=== PATIENT | male | born 1960 | race Caucasian/White ===

== ENCOUNTER 2018-03-26 15:16 | Inpatient (IN) | payer MEDICARE, MEDICAID ==
[~2018-03-26] VITALS: Ht 177.8 cm; Wt 86.2 kg
[~2018-03-26 15:16] MED LIST: ADVAIR 500-501 EACH; ALBUTEROL INHAL17 GM IH; ALBUTEROL NEB; ALBUTEROL2.5 MG/0.5 INH; CLARITIN10 M2 PO; COMBIVENT INH; DILANTIN100 MG PO; FUROSEMIDE; HUMALOG100 UNIT/1 SUBQ; KEFLEX500 MG PO; KEPPRA1000 MG PO; LANTUS SQ; LASIX 20 MG TAB20 MG PO; LISINOPRIL20 MG PO; MEDROLDOSEPACK PO; NEOSPORIN ANT14.2 GM TOP; NORCO 5-325 TA1 EAC1 PO; PAXIL10 MG; PENICILLIN VK250 MG PO; PREDNISONE 20 M20 MG PO; PRINIVIL20 MG PO; VENTOLIN HFA 1818 GM INH; ZOHYDRO ER10 M1 PO; ZPAK PO
[2018-03-26 15:28] VITALS: BP 137/103
--- NOTE | 2018-03-26 16:04 | NUR ---
XRAY IN ROOM
[2018-03-26 16:46] LABS: ABSOLUTE BASOPHILS 0.1 thou/uL (0.0-0.2); ABSOLUTE EOSINOPHILS 0.1 thou/uL (0.0-0.7); ABSOLUTE LYMPHOCYTES 1.6 thou/uL (0.8-5.3); ABSOLUTE MONOCYTES 0.6 thou/uL (0.0-1.2); ABSOLUTE NEUTROPHILS 12.2 thou/uL (1.6-8.1); BASOPHILS 0.8 %; EOSINOPHILS 0.4 %; HEMATOCRIT 40.9 % (42.0-52.0); HEMOGLOBIN 13.7 gm/dL (14.0-18.0); LYMPHOCYTES 11.2 %; MCH 30.3 pg (26.0-34.0); MCHC 33.4 g/dL (28.0-37.0); MCV 90.7 fL (80.0-100.0); MONOCYTES 4.4 %; MPV 7.5 fl. (7.2-11.1); NUCLEATED RBCS 0 /100WBC; PLATELET COUNT* 279 thou/uL (150-400); POLYS 83.2 %; RBC 4.51 mil/uL (4.50-6.00); RDW-CV 13.8 % (10.5-14.5); WBC 14.7 thou/uL (4.0-11.0)
[2018-03-26 16:54] LABS: CALCIUM 8.3 mg/dL (8.5-10.1); CREATININE 0.9 mg/dL (0.6-1.3); POTASSIUM 4.6 mmol/L (3.5-5.1)
[2018-03-26 16:59] LABS: ALBUMIN 1.4 g/dL (3.4-5.0); TOTAL BILIRUBIN 0.6 mg/dL (<0.1-1.0); TOTAL PROTEIN 7.8 g/dL (6.4-8.2)
[2018-03-26 19:00] VITALS: BP 177/107
[2018-03-26 22:10] VITALS: BP 176/100
--- NOTE | 2018-03-26 22:42 | NUR ---
ARRIVED FROM ER ALERT AND ORIENTED X4. ORIENTED TO ROOM AND BED CONTROLS. PO PAIN MEDICATION GIVEN. DRESSING APPLIED TO OPEN WOUNDS ON LEFT LEG AND RIGHT FOOT. NO C/O N/V. BED ALARM ON. CALL LIGHT WITHIN REACH. ASSESSMENT CHARTED. IV ANTIBIODIC INFUSING AT THIS TIME.
[2018-03-27 00:17] VITALS: BP 159/96
[2018-03-27 04:14] LABS: HEMATOCRIT 41.6 % (42.0-52.0); HEMOGLOBIN 13.7 gm/dL (14.0-18.0); MCH 29.9 pg (26.0-34.0); MCHC 32.8 g/dL (28.0-37.0); MCV 91.2 fL (80.0-100.0); MPV 7.4 fl. (7.2-11.1); RBC 4.57 mil/uL (4.50-6.00); RDW-CV 13.7 % (10.5-14.5); WBC 13.4 thou/uL (4.0-11.0)
--- NOTE | 2018-03-27 04:33 | NUR ---
ALERT AND ORIENTED X4. UP WITH STAND BY ASSIST TO BATHROOM. PO PAIN MEDICATION GIVEN AND HELPFUL. NO C/O N/V. CONTINUES ON IV ANTIBIODICS. IVF INFUSING WITHOUT DIFFICULTY. NEW DRESSINGS TO RIGHT AND LEFT LOWER EXTREMITY REMAIN DRY AND INTACT. BED ALARM ON. CALL LIGHT WITHIN REACH.
[2018-03-27 05:24] LABS: ALBUMIN 1.4 g/dL (3.4-5.0); CREATININE 0.8 mg/dL (0.6-1.3); MAGNESIUM 1.6 mg/dL (1.8-2.4); POTASSIUM 3.9 mmol/L (3.5-5.1); TOTAL BILIRUBIN 0.4 mg/dL (<0.1-1.0); TOTAL PROTEIN 7.7 g/dL (6.4-8.2)
[2018-03-27 05:30] VITALS: BP 136/80
[2018-03-27 08:40] VITALS: BP 151/92
[2018-03-27] MEDS ORDERED: LASIX 20 MG TAB20 MG PO (14:00)
[2018-03-27] MEDS ORDERED: KEPPRA1000 MG PO (14:00)
[2018-03-27] MEDS ORDERED: LYRICA 50 MG50 MG PO (14:01)
[2018-03-27] MEDS ORDERED: NOVOLOG100 UNIT/1 SUBQ (14:02)
--- NOTE | 2018-03-27 14:12 | NUR ---
SPOKE WITH PT.IN ROOM. HE SEEMED QUIET,SOMEWHAT DISTRAUGHT. HE SAID THE DRRajTHAT WILL BE LOOKING AT HIS FOOT,HAS NOT CAME IN YET. HE SAID THE OTHER DRRajTALKED LIKE THEY MIGHT HAVE TO CUT OFF HIS FOOT. EDUCATED PT.ON OSTEOMYLEITIS. THEY WOULD NOT HAVE TO TAKE OFF HIS WHOLE FOOT ON FIRST SURGERY. POSSIBLY JUST HIS TOE OR PART OF HIS FOOT. THE DRRajWILL BE IN TODAY AND EXPLAIN IT TO HIM. 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 HE HAS TO BE ON THE JOB BUT COULD PROBABLY SIT IN THE AIR CONDITIONED OFFICE THAT IS AT THE JOB SITE. HE LIVES WITH HIS S.O.,FEI. 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 HE SAID THEY WILL BE MOVING IN ABOUT A WEEK. AT THIS TIME THEY ARE LIVING WITH HIS BROTHER AND BOTH (HE AND BROTHER) HAVE GOTTEN THEIR OWN PLACES TO LIVE. HE SAID HE HAS TO BE THERE WHEN THEY MOVE BECAUSE HIS BROTHER HAS A BRAIN INJURY FROM FALLING OFF THE BACK OF A TRUCK. HE WILL TAKE THINGS THAT ARENT HIS. PER CHARGE NURSE,SENDY, PT.IS NOT IN POLICE CUSTODY ANY LONGER. CM WILL FOLLOW.
[2018-03-27 16:00] VITALS: BP 175/100
--- NOTE | 2018-03-27 16:07 | NUR ---
PATIENT EXTREMELY UPSET AND FRUSTRATED. PATIENT STATING HE NEEDS TO LEAVE DUE TO SITUATIONS THAT ARE GOING ON AT HOME. EXPLAINED TO PATIENT THAT THE DONOR SERVICES COORDINATOR IS PLANNING ON COMING BY AFTER CLINIC HOURS AND ENCOURAGED PATIENT TO STAY FOR ANTIBIOTICS AND WOUND CARE. PATIENT STATED HE WOULD TRY TO STAY UNTIL THE DONOR SERVICES COORDINATOR CAME BY. PAGED DR REDD TO UPDATE ON PATIENT STATUS.
[2018-03-27 17:32] LABS: AMP/METHAMP POSITIVE (Negative); BARBITURATES Negative (Negative); BENZODIAZEPINES Negative (Negative); COCAINE Negative (Negative); METHADONE Negative (Negative); OPIATES POSITIVE (Negative); PCP Negative (Negative); THC Negative (Negative)
--- NOTE | 2018-03-27 18:37 | NUR ---
PATIENT HAS BEEN A/O X 4 THIS SHIFT. HAS BEEN ANXIOUS AND UPSET AT TIMES, REASSURANCE PROVIDED. CONTINUES ON IV ANTIBIOTICS. DRESSING CHANGED TO RIGHT FOOT BY DR HIGH. PATIENT TO HAVE MRI ON TUESDAY. PATIENT'S BLOOD SUGARS MONITORED AND SS GIVEN ORDERED. PATIENT URINE SENT FOR DRUG SCREEN ORDERED. PATIENT TO BE NPO AFTER MIDNIGHT FOR SURGERY ON TUESDAY. HOURLY ROUNDING COMPLETED. CALL LIGHT WITHIN REACH. WILL CONTINUE WITH PLAN OF CARE.
[2018-03-28 08:00] VITALS: BP 153/82
--- NOTE | 2018-03-28 08:17 | CON ---
[address] [address] CONSULTATION Name: CHUYITA LUA Room: [address] IN M.R.#: [id number] Admission: 03/26/18 Attend Phys: Juli Johnson MD Discharge: Date of : 62 Report #: [id number] THIS REPORT FOR: //name// CC: [facility] physician/PCP Juli Johnson DATE OF SERVICE: 03/27/2018 INFECTIOUS DISEASE CONSULTATION ATTENDING PHYSICIAN: Dr. Johnson. REASON FOR EVALUATION: Right first MTP site probable osteomyelitis as well as septic arthritis. HISTORY OF PRESENT ILLNESS: Chart reviewed, patient examined. This is a 57-year-old gentleman with diabetes mellitus that has been uncontrolled. This was complicated by severe peripheral neuropathy. He stated he believes he stepped on a nail roughly a month ago, it was least 24-36 hours before he was aware of it, had some low-grade temperatures elevations at that time. He noted the nail to perhaps be 1/2 inch long. Since it did hurt him in part probably due to peripheral neuropathy, he did not seek attention. He has had some falls by virtue of the fact he has got a bruised area on his knee, on his max on the left and a larger area of ulceration on the right foot as well. He denies significant anorexia. He has had some mild dyspnea. No gastrointestinal-related complaints. Initial evaluation included CT of the foot, which shows changes consistent with osteomyelitis and septic arthritis of the first metatarsophalangeal joint with erosions and chondrolysis. Lactic acid was 1.8. Prealbumin was 14.7. Initial glucose was 322. Blood cultures were sterile thus far. He was empirically started on piperacillin and tazobactam as well as vancomycin. ALLERGIES: None known. MEDICATIONS: Include ondansetron, vancomycin, Zosyn, enoxaparin, insulin, pantoprazole, lisinopril. PAST MEDICAL HISTORY: Diabetes mellitus type 2 complicated by severe peripheral neuropathy, history of cardiomyopathy with congestive heart failure, seizures, hypertension, COPD, previous cholecystectomy. SOCIAL HISTORY: History of illicit drug use. Smokes cigarettes on a daily basis. Occasional ethanol. FAMILY HISTORY: [place] [address] CONSULTATION Name: CHUYITA LUA [place] Room: [address]#: [id number] Admission: 03/26/18 Attend Phys: Juli Johnson MD Discharge: Date of : 62 Report #: [id number] REVIEW OF SYSTEMS: As above. PHYSICAL EXAMINATION: GENERAL: He appears somewhat chronically ill, undernourished. He is pleasant and cooperative. He is not encephalopathic, he is in cmhu-qx-brlgigyv distress. VITAL SIGNS: Temperature 98.6, pulse 80, respirations 20, blood pressure 151/92. SKIN: Warm, dry. HEENT: Unremarkable. NECK: Supple. LUNGS: Diminished breath sounds. HEART: Regular. I think he has got a soft systolic murmur. ABDOMEN: Soft, nontender, nondistended. EXTREMITIES: He has got a dressing over his right foot and left leg. I did review the multiple photographs. LABORATORY AND X-RAY DATA: Blood cultures sterile thus far. Glucose this morning was 132. Electrolytes: Sodium 135, potassium 3.9, chloride 100, bicarbonate is 27, anion gap of 8, BUN and creatinine 14 and 0.8. LFTs: AST of 45, borderline upper limits of normal; ALT of 26; alkaline phosphatase of 288; albumin 1.4; total protein 7.7. Estimated GFR of 100. Prealbumin 14.7. CBC: White count of 13.4, H and H 13.7 and 41.6, platelets of 263. CT as noted above. Lactic acid of 1.8. Plain film of the foot, first MTP joint, moderate osteoarthrosis. ASSESSMENT: Probable deep infection involving the first MTP, likely chronic osteomyelitis and septic arthritis. We did plan for certified scrub tech to evaluate. We will continue empiric therapy as prescribed. I suspect we will need some sort of surgical intervention at this point. He was quite distraught about that possibility. He certainly did not have well-controlled diabetes to this point. We will await culture results. In the event of chronic osteomyelitis, we need to consider therapeutic options in this setting. <ELECTRONICALLY SIGNED> By: Wes Lozano MD 03/28/18 0817 0932 [id number] Lozano MD /nt
--- NOTE | 2018-03-28 08:43 | NUR ---
PATIENT HAS BEEN AGITATED AND IRRITABLE DURING THE SHIFT. USES PROFANITY TOWARDS STAFF AT TIMES WHEN ANGRY. VSS ON RA, ALTHOUGH BP ELEVATED. DRESSING TO RIGHT FOOT IS C/D/I. IV IN LEFT FOREARM-SL. IV ABT'S GIVEN WITHOUT ANY ADVERSE SIDE EFFECTS NOTED. SEIZURE PRECAUTIONS STILL IN PLACE AT THIS TIME. PATIENT HAS REMAINED NPO SINCE MIDNIGHT. PATIENT INSTRUCTED TO USE CALL LIGHT WHEN NEEDING ASSISTANCE. HOURLY ROUNDS MADE. WILL CONTINUE WITH PLAN OF CARE AND NURSING TO MONITOR.
[2018-03-28 08:54] LABS: ABSOLUTE BASOPHILS 0.1 thou/uL (0.0-0.2); ABSOLUTE EOSINOPHILS 0.1 thou/uL (0.0-0.7); ABSOLUTE LYMPHOCYTES 1.8 thou/uL (0.8-5.3); ABSOLUTE MONOCYTES 0.8 thou/uL (0.0-1.2); ABSOLUTE NEUTROPHILS 6.7 thou/uL (1.6-8.1); EOSINOPHILS 1.2 %; HEMATOCRIT 37.1 % (42.0-52.0); HEMOGLOBIN 12.4 gm/dL (14.0-18.0); LYMPHOCYTES 18.6 %; MCH 30.2 pg (26.0-34.0); MCHC 33.4 g/dL (28.0-37.0); MCV 90.6 fL (80.0-100.0); MONOCYTES 8.4 %; MPV 7.6 fl. (7.2-11.1); NUCLEATED RBCS 0 /100WBC; PLATELET COUNT* 224 thou/uL (150-400); POLYS 70.8 %; RDW-CV 13.4 % (10.5-14.5); WBC 9.5 thou/uL (4.0-11.0)
[2018-03-28 09:01] LABS: CALCIUM 7.9 mg/dL (8.5-10.1); CREATININE 0.9 mg/dL (0.6-1.3); POTASSIUM 4.1 mmol/L (3.5-5.1)
[2018-03-28 15:06] VITALS: BP 153/82
--- NOTE | 2018-03-28 16:41 | NUR ---
0730-ASSUMED CARE OF PT, PT RESTING AT THIS TIME WITH NO C/O PAIN. 0900-PT STATES HE IS HUNGRY AND DOES NOT WANT TO CONTINUE TO WAIT FOR MRI, PT TOLD THAT THIS RN WOULD INQUIRE REGARDING TIMES FOR PROCEDURES & PT UPDATED THAT HIS SISTER AND RAMÓN CALLED TO INQUIRE ABOUT HIS STATUS. 1030-PT ASLEEP AT THIS TIME, WILL UPDATE REGARDING THE PLAN OF CARE WHEN PT WAKES 1245-PT LEFT FOR MRI 0345-PT LEFT FOR SURGERY AT THIS TIME. WILL WAIT FOR PT TO RETURN
[2018-03-28 16:57] VITALS: BP 179/87
[2018-03-28 18:19] VITALS: BP 153/83
--- NOTE | 2018-03-28 18:33 | NUR ---
1818-PT RETURNED FROM PACU. PT VSS AT THIS TIME. PT IS LETHARGIC BUT ALERT WHEN SPOKEN TO. PT REQUESTING FOOD AT THIS TIME, WILL PROVIDE WITH BOX LUNCH. PT RESTING IN BED AT THIS TIME. RT FOOT DRESSING IS CDI AT THIS TIME AND ORDERS ARE TO REINFORCE IF NECESSARY. PT HAS NO C/O PAIN AT THIS TIME.
[2018-03-28 22:00] VITALS: BP 176/100
[2018-03-29 03:40] VITALS: BP 163/101
[2018-03-29 06:10] LABS: GLYCOHEMOGLOBIN (HGB A1C) 12.1 % (4.8-5.6)
[2018-03-29 08:30] VITALS: BP 165/94
[2018-03-29 08:37] LABS: ABSOLUTE BASOPHILS 0.1 thou/uL (0.0-0.2); ABSOLUTE EOSINOPHILS 0.1 thou/uL (0.0-0.7); ABSOLUTE LYMPHOCYTES 1.7 thou/uL (0.8-5.3); ABSOLUTE MONOCYTES 0.7 thou/uL (0.0-1.2); ABSOLUTE NEUTROPHILS 6.5 thou/uL (1.6-8.1); BASOPHILS 0.7 %; HEMATOCRIT 37.9 % (42.0-52.0); HEMOGLOBIN 12.6 gm/dL (14.0-18.0); LYMPHOCYTES 18.8 %; MCH 29.8 pg (26.0-34.0); MCHC 33.1 g/dL (28.0-37.0); MONOCYTES 7.4 %; MPV 7.4 fl. (7.2-11.1); NUCLEATED RBCS 0 /100WBC; PLATELET COUNT* 263 thou/uL (150-400); POLYS 72.1 %; RBC 4.21 mil/uL (4.50-6.00)
[2018-03-29 09:03] LABS: ALBUMIN 1.3 g/dL (3.4-5.0); CREATININE 0.8 mg/dL (0.6-1.3); POTASSIUM 4.1 mmol/L (3.5-5.1); TOTAL BILIRUBIN 0.4 mg/dL (<0.1-1.0)
--- NOTE | 2018-03-29 09:51 | NUR ---
PATIENT HAS SLEPT WELL THROUGHOUT THE NIGHT WITHOUT ANY ISSUES. NO C/O PAIN. VSS ON RA, ALTHOUGH BP ELEVATED. DRESSING TO RIGHT FOOT IS C/D/I. IV IN LEFT FOREARM-SL. IV ABT'S GIVEN WITHOUT ANY ADVERSE SIDE EFFECTS NOTED. PATIENT INSTRUCTED TO USE CALL LIGHT WHEN NEEDING ASSISTANCE. HOURLY ROUNDS MADE. WILL CONTINUE WITH PLAN OF CARE AND NURSING TO MONITOR.
--- NOTE | 2018-03-29 13:36 | OP ---
[address] [address] OPERATIVE REPORT Name: CHUYITA LUA Room: [address] IN .R.#: [id number] Admission: 03/26/18 Attend Phys: Juli Johnson MD Discharge: Date of : 62 Report #: [id number] THIS REPORT FOR: //name// CC: [facility] physician/PCP Juli Johnson DATE OF SERVICE: 03/28/2018 SURGEON: Jose D Currie DPM. PREOPERATIVE DIAGNOSIS: Deep tissue infection, right foot. POSTOPERATIVE DIAGNOSIS: Deep tissue infection, right foot. PROCEDURE: 1. Incision and drainage, right foot. 2. Excision soft tissue lesion, right foot. HEMOSTASIS: Right ankle pneumatic tourniquet at 250 mmHg. ESTIMATED BLOOD LOSS: Minimal. CULTURES: Soft tissue, right foot, aerobic and anaerobic. SUTURES: 2-0 nylon. COMPLICATIONS: None. DESCRIPTION OF PROCEDURE: The patient was brought to the OR and placed on the table supine with induction of general LMA anesthesia. A well-padded right ankle pneumatic tourniquet was placed. A local anesthetic block was given to the right foot proximal to the surgical site. The extremity was prepped and draped aseptically, exsanguinated with inflation of the tourniquet. A #10 blade was used to create a circumferential incision around the wound at the medial aspect of the right first MTP joint. The soft tissue ulceration was sent for aerobic and anaerobic soft tissue cultures. Underlying the soft tissue, was intact joint capsule that had a normal appearance with no visible bone or joint. This wound did communicate to the plantar aspect of the second MTP joint where there was a previous puncture wound from a nail per the patient's history. I probed this area and a small amount of purulence was visualized. I then created an incision to the plantar aspect of the right second MTP through the existing puncture site and carried the incision proximally along the distal second metatarsal. A small amount of purulence was expressed and electrocautery was utilized for hemostasis to both surgical sites. Both wounds were thoroughly probed with a curved Margo hemostat along the medial plantar fascial band and deep tissue as well as the second and first intermetatarsal [place] [address] OPERATIVE REPORT Name: CHANELLCHUYITA Lourdes Room: [address] IN [facility]#: [id number] Admission: 03/26/18 Attend Phys: Juli Johnson MD Discharge: Date of : 62 Report #: [id number] purulence was noted. No signs of deep abscess could be determined. I was unable to express any drainage or purulence after extensive probing of the wounds. The wounds were flushed with sterile saline and bacitracin irrigant and dried. Aquacel Ag was then packed into both the medial first MTP wound and the plantar second MTP wound, which communicated. Aquacel Ag was then placed over the wounds and I used 2-0 nylon for partial approximation of some of the surgical incisions. A sterile compressive bandage with fluffs, ABDs, Kerlix, and Hua bandage were applied. The tourniquet was deflated with normal vascular return. <ELECTRONICALLY SIGNED> By: Jose D Currie DPM 03/29/18 1336 1748 1839Jose D Currie DPM /nt
--- NOTE | 2018-03-29 13:36 | CON ---
[address] [address] CONSULTATION Name: CHUYITA LUA Room: [address] IN .R.#: [id number] Admission: 03/26/18 Attend Phys: Juli Johnson MD Discharge: Date of : 62 Report #: [id number] THIS REPORT FOR: //name// CC: [facility] physician/PCP Juli Johnson DATE OF SERVICE: 03/27/2018 CHIEF COMPLAINT: The patient admission for right diabetic foot ulceration with deep tissue infection. HISTORY OF PRESENT ILLNESS: He has type 2 diabetes mellitus with poor glycemic control and a history of drug use. He had some low-grade fevers at home and presented to the Emergency Department yesterday and then admitted. He is on parenteral vancomycin and Zosyn with good tolerance. He has been afebrile during the hospitalization. He has been hypertensive. X-rays were negative for bone destruction or gas in the soft tissues, and there was no evidence of osteomyelitis. Blood cultures negative x 2. He relates stepping on a nail several weeks ago to the right plantar forefoot; he says he retrieved it. There was no evidence of a foreign body on the foot radiographs. He thinks he rubbed a blister in his shoe to the medial aspect of the right great toe joint. 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 LABORATORY DATA: WBC 13.4, RBC 4.57, hemoglobin 13.7, hematocrit 41.6 and platelets 263,000. BUN 14, creatinine 0.8 and glucose 117. Albumin 1.4. PHYSICAL EXAMINATION: There is a necrotic ulceration on the right medial great toe joint that measures roughly 2.5 x 2.5 x 0.6 cm. It is a full-thickness wound down to the level of the joint capsule with no visible bone. The wound has yellow-brown necrotic tissue with scant serous-type drainage. I am unable to express purulence, and I cannot probe to the joint. There is another wound to the plantar aspect of the right second MTP, where the patient says he stepped on the nail. The wound is roughly 0.5 x 0.5 x 0.2 cm. I am unable to express any drainage or probe to deeper structures. There is localized inflammation and edema to both areas, consistent with moderate cellulitis. He has a strong dorsalis pedis and posterior tibial pulse bilaterally. There is no pallor, cyanosis or signs of acute vascular embarrassment. He has +2 non-pitting edema to both legs with hemosiderosis to the shins. Toenails are slightly dystrophic with semi-flexible hammertoes. IMPRESSION: Diabetic foot ulceration with deep tissue infection, right medial first metatarsophalangeal and right plantar second metatarsophalangeal. Cannot rule out septic arthritis or osteomyelitis. PLAN: I took an aerobic, anaerobic swab culture of the medial first MTP wound. The wounds were cleansed and dressed with 4 x 4s and Kerlix gauze[place] [address] CONSULTATION Name: CHUYITA LUA Room: [address] IN [facility]#: [id number] Admission: 03/26/18 Attend Phys: Juli Johnson MD Discharge: Date of : 62 Report #: [id number] MRI with contrast tonight. The patient requires surgical debridement, could require partial first ray resection if there is osteomyelitis. I will review MRI results tomorrow and discuss with the patient. I will keep him n.p.o. past midnight. <ELECTRONICALLY SIGNED> By: Jose D Currie DPM 03/29/18 1336 1721 0057Jose D Currie DPM /mitchell
--- NOTE | 2018-03-29 13:36 | EKG ---
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
[2018-03-29 16:00] VITALS: BP 192/111
--- NOTE | 2018-03-29 16:53 | NUR ---
ASSUMED CARE OF PT AROUND 0730 THIS AM. REFER TO ASSESSMENT. PT DROWSY THIS SHIFT. EASILY AROUSABLE. NO C/O PAIN. FREQUENTLY AGITATED WITH NURSING CARES. PT HAS HIGH BLOOD PRESSURE THIS EVENING. NO PRN MEDS TO GIVE AT THIS TIME D/T PRN HYDRALAZINE ON BACKORDER. CALL OUT TO PHYSICIAN. MAC OPERATOR AT BEDSIDE THIS SHIFT FOR WOUND CARE. NO OTHER CONCERNS AT THIS TIME. CLWR. WCTM.
[2018-03-29 19:35] VITALS: BP 181/108
--- NOTE | 2018-03-29 22:36 | NUR ---
PATIENT BLOOD PRESSURE ELEVATED. PHYSICIAN CONTACTED. ORDERS RECIEVED.
[2018-03-30 00:58] VITALS: BP 160/99
[2018-03-30 04:34] VITALS: BP 165/99
--- NOTE | 2018-03-30 04:51 | NUR ---
PATIENT REMAINS ALERT AND ORIENTED X4 THROUGHOUT SHIFT. BLOOD PRESSURE WAS ELEVATED, PHYSICIAN WAS CONTACTED AND ORDERS WERE RECIEVED. ALSO SPOKE WITH PHYSICIAN ABOUT PATIENT BEING VERY DROWSY. NURSING IS TO CONTINUE MONITORING AT THIS TIME. VITAL SIGNS ARE CURRENTLY STABLE ON ROOM AIR. IV PATENT IN THE LEFT FOREARM SALINE LOCKED. ANTIBIOTICS INFUSED PER ORDERS. DENIES PAIN OR NAUSEA. DRESSING TO RIGHT FOOT IS CLEAN, DRY AND INTACT. REPOSITIONING SELF IN BED. CONTINUING TO MONITOR BLOOD PRESSURE CLOSELY. RESTING COMFORTABLY THROUGHOUT THE NIGHT. HOURLY ROUNDING COMPLETE. CALL LIGHT WITHIN REACH. FALL PRECAUTIONS IN PLACE. NURSING WILL CONTINUE TO MONITOR.
[2018-03-30 08:00] VITALS: BP 157/107
--- NOTE | 2018-03-30 14:00 | NUR ---
SPOKE WITH PT.EARLIER. HE SAID WHEN DISCHARGED HE WILL NOT HAVE A PLACE TO LIVE. HIS BROTHER MOVED OUT OF [place] THEY WERE LIVING IN. HIS BROTHER HAS PT.S' BELONGINGS AND WILL STORE THESE THINGS FOR HIM. HE CANNOT LIVE WITH HIM.CANNOT LIVE WITH GIRLFRIEND . SHE IS STAYING AT A BED AND BREAKFAST AND HAS A LEASE THAT DOES NOT ALLOW ANYONE TO STAY WITH HER. CANNOT STAY WITH SISTER,JOAN, SHE DOES NOT LIKE PEOPLE LIVING WITH HER. HE SAID HE WILL NOT GO DOWNTOWN TO A HOMELESS PRISON. HE DOES NOT HAVE A CAR. HIS GIRLFRIENDS CAR WAS STOLEN 2 DAYS AGO. ASKED IF HE COULD STAY AT OFFICE WHERE HIS JOB IS. HE SAID IT IS A LITTLE ONE ROOM AIR CONDITIONED PLACE. HAS A BATHROOM BUT NO RUNNING WATER. HE GETS SS EA.MONTH ON THE ,BUT HIS ACCOUNT IS OVERDRAWN AT THIS TIME. IS DUE TO GET A REFUND BACK FROM [employer] THAT HE OVERPAID-$450. SUGGESTED SNF FOR WOUND CARE,DIABETIC MANAGEMENT AND THERAPIES. HE SAID HE WOULD ONLY GO THERE IF HE COULD LEAVE TO GO TO WORK. TOLD HIM MEDICARE WOULD NOT ALLOW HIM TO LEAVE SNF WHILE HE WAS THERE WHILE THEY WERE PAYING FOR HIS STAY. BROUGHT HIM HOUSING AUTHORITY NUMBERS FOR [place] AND [place]. ALSO BROUGHT A SNF LIST IN CASE HE CHANGED HIS MIND ABOUT THAT.MADE HIM AN APPT.AT THE WOUND CARE CLINIC TO FOLLOW UP WITH . WOULD NOT BE ABLE TO SET HOME HEALTH UP IF WE DID NOT KNOW HIS DISPOSITION AT DISCHARGE. CM WILL FOLLOW.
[2018-03-30 15:09] VITALS: BP 149/91
[2018-03-30 15:53] VITALS: BP 149/91
[2018-03-30 16:13] LABS: GLOBULIN TOTAL 5.6 g/dL (2.2-3.9); M-SPIKE Not Observed g/dL (Not Observed)
[2018-03-30 19:45] VITALS: BP 190/103
--- NOTE | 2018-03-31 05:47 | NUR ---
PATIENT HAS REMAINED ALERT AND ORIENTED X 4 THROUGHOUT THE SHIFT AND RESTING QUIETLY ON HOURLY ROUNDS. DRESSING TO RIGHT FOOT CHANGED AT HS AFTER SPEAKING TO DR. HIGH. BP ELEVATED AT HS. PRN MEDICATION PROVIDED. OTHER VITAL SIGNS STABLE. PATIENT HAS DENIED NEED FOR PAIN MEDICATION. PATIENT COOPERATIVE WITH CARES. CONTINUE TO MONITOR.
[2018-03-31 06:10] VITALS: BP 165/93
[2018-03-31 07:30] VITALS: BP 178/103
[2018-03-31 09:00] VITALS: BP 178/103
--- NOTE | 2018-03-31 12:04 | NUR ---
PT. HAS DECIDED HE WOULD LIKE TO GO TO SNF. HE WOULD LIKE TO GO TO THE [facility]. WAITING FOR PHYSICAL THERAPY ASSESSMENT. WILL FAX REFERRAL TO [facility] AT [phone]. SPOKE WITH PAMELA AND TOLD HER PT.HAD DISCHARGE ORDERS FOR TODAY.
--- NOTE | 2018-03-31 14:25 | NUR ---
[facility] CALLED AND STATED THEY DO NOT FEEL THEY CAN MEET PT.'S NEEDS. THEY ARE A NON SMOKING FACILITY AND CONCERN FOR HIS METH HX. SPOKE WITH PT. GAVE HIM SEVERAL NSG.FACILITIES IN [place] THAT ALLOW SMOKING. HE CHOSE [facility] OR [facility]. NOTIFIED XIOMY AND FAXED HER REFERRAL. SHE WILL REVIEW AND CALL CM BACK.
[2018-03-31] MEDS ORDERED: MINOCIN100 MG PO (16:09)
[2018-03-31] MEDS ORDERED: HYDROCODONE-AP1 EAC6 PO (16:09)
[2018-03-31] MEDS ORDERED: AUGMENTIN 875-1 EACH PO (16:10)
[2018-03-31] MEDS ORDERED: CLONIDINE0.1 PO (16:14)
--- NOTE | 2018-03-31 16:17 | NUR ---
JERARDO/ALISA ACCEPTED PT.TO [facility]. SHE WILL SET UP WC VAN FOR 1729. SPOKE WITH US LIA. SHE WILL FAX ORDERS AND WOUND CARE ORDERS TO JERARDO/[phone]. CHART COPIED TO GO WITH PT. NURSING TO CALL REPORT. [place]IN SPOKE WITH PT.ON PHONE. TOLD HIM OF ACCEPTANCE, THEY WILL NOT TOLERATE ANY DRUG USE AND HE HAS TO STAY AT FACILITY OR WILL BE CONSIDERED LEAVING AMA. HE VERBALIZED AN UNDERSTANDING.
--- NOTE | 2018-03-31 17:56 | NUR ---
PATIENT A&OX4, FLAT AFFECT. ROOM AIR, NO IV ACCESS. UP WITH ASSISTX1 WITH WALKER AND GAITBELT. 50% WEIGHT BEARING TO RIGHT FOOT; SURGICAL BOOT TO BE ON WHEN AMBULATING. NO C/O PAIN/N/V. WOUND DRESSING CHANED THIS A.M. BY DR. SPEARS. CHANGED AGIAN PRIOR TO DISCHARGE FOR D/C PICTURES. WOUND CARE SENT WITH PATIENT. PATIENT DISCHARGED TO [facility]; CALLED AND GAVE REPORT TO DAR. ALL QUESTIONS AND CONCERNS ANSWERED. NO OTHER CONCERNS AT THIS TIME. APPROPRIATE AND COOPORATIVE WITH CARE. PATIENT LEFT UNIT AT 1740 VIA W/C WITH TRANSPORTER. ALL BELONGINGS TAKEN WITH PATIENT, NOTHING LEFT BEHIND.
--- NOTE | 2018-04-05 14:03 | CON ---
[address] [address] CONSULTATION Name: PREETIDannyCHUYITA Lourdes Room: [address] IN M.R.#: [id number] Admission: 03/26/18 Attend Phys: Juli Johnson MD Discharge: 03/31/18 Date of : 62 Report #: [id number] THIS REPORT FOR: //name// CC: [facility] physician/PCP Juli Johnson DATE OF SERVICE: 03/29/2018 CHIEF COMPLAINT: Postoperative day #1 for incision and drainage, right foot abscess with deep tissue infection. He has been afebrile, good appetite, minimal pain. He is on parenteral vancomycin and Zosyn. Blood cultures negative x 2. Surgical cultures are pending. CT was indicative of chronic lytic changes to the right first MTP. The MRI did not show any acute process, and I discussed with Dr. Jori Giles, the MRI findings. Dr. Giles did not feel there was any acute osteomyelitis. Based on the recent occurrence of the wound and infection, I feel that osteomyelitis is unlikely. During the surgery, the wounds did not communicate through the joint capsule, and there was no exposed bone or joint. Noninvasive arterial Doppler showed strong biphasic waveforms with normal ABIs. LABORATORY DATA: WBC 9.0, RBC 4.21, hemoglobin 12.6, hematocrit 37.9, platelets 263. BUN 12, creatinine 0.8, glucose 181. PHYSICAL EXAMINATION: VITAL SIGNS: Temperature 98.3, pulse 82, respirations 16, blood pressure 165/94. EXTREMITIES: The foot is significantly improved with minimal inflammation and no rosario erythema or cellulitis. The wound margins are intact with no pallor, cyanosis or signs of acute vascular embarrassment. No active bleeding, no fluctuance or crepitation. The wound beds have red healthy tissue that bleeds upon debridement. IMPRESSION: Postoperative day #1 for incision and drainage, right foot with deep tissue infection. PLAN: Excisional ulcer debridement performed to both the medial and plantar forefoot wounds with scissors and forceps to remove subcutaneous tissue. Scant bleeding was stopped with pressure. The wounds were cleansed and packed with Aquacel Ag and covered with ABDs, Kerlix and Hua bandage. The patient may have physical therapy tomorrow for partial weightbearing and a surgical shoe for transfers or short distances. <ELECTRONICALLY SIGNED> By: Jose D Currie DPM 04/05/18 1403 1249 1426Jose D Currie DPM /nt
--- NOTE | 2018-04-05 14:03 | CON ---
[address] [address] CONSULTATION Name: CHUYITA LUA Room: [address] IN M.R.#: [id number] Admission: 03/26/18 Attend Phys: Juli Johnson MD Discharge: 03/31/18 Date of : 62 Report #: [id number] THIS REPORT FOR: //name// CC: MARIA DE JESUS physician/PCP Juli Johnson DATE OF SERVICE: 03/31/2018 CHIEF COMPLAINT: Followup of incision and drainage of right foot for deep tissue infection and abscess. HISTORY OF PRESENT ILLNESS: He is doing well, preoperative cultures growing group B Streptococcus, Staph aureus and Enterococcus. He had a dose of oral linezolid 600 mg with good tolerance. He has been afebrile, denies foot pain. He is partial weightbearing to the right foot in a surgical shoe with assistive device. There are no new labs for review. PHYSICAL EXAMINATION: The inflammation substantially decreased, with no rosario cellulitis. The medial first MTP wound and plantar second MTP wounds communicate with red tissue that bleeds upon debridement. There is no pallor, cyanosis or signs of acute vascular embarrassment. No popliteal adenopathy to the extremity. Palpable right dorsalis pedis and posterior tibial pulses. IMPRESSION: Status post incision and drainage with deep tissue infection, type 2 diabetes mellitus. PLAN: The wound was debrided with a curette to remove subcutaneous tissue from the anterior both the medial and plantar second MTP wounds. Bleeding was stopped with pressure. It was cleansed and then both wounds were packed with Aquacel Ag and covered with ABDs, Kerlix and Hua. Discharge plans pending, antibiotics per Infectious Disease. <ELECTRONICALLY SIGNED> By: Jose D Currie DPM 04/05/18 1403 0702 1300Jose D Currie DPM /nt
== END 2018-03-31 17:40 | DRG 853 ==
LOC: M.ERS 15:16 → M.ORTHSURG 18:15 → M.TBA-ER 18:15 → M.ORTHSURG 19:28
PROVIDERS: Internal Medicine; Nurse Practitioner Family; Specialist; ADMIT Internal Medicine
PROC: 0JBQ0ZZ Excision of Right Foot Subcutaneous Tissue and Fascia, Open Approach (ICD-10-PCS; principal; 2018-03-28)
DX: A41.9 Sepsis, unspecified organism (principal); E43 Unspecified severe protein-calorie malnutrition; M86.171 Other acute osteomyelitis, right ankle and foot; L03.115 Cellulitis of right lower limb; M86.8X7 Other osteomyelitis, ankle and foot; M00.9 Pyogenic arthritis, unspecified; E11.621 Type 2 diabetes mellitus with foot ulcer; I11.0 Hypertensive heart disease with heart failure; E11.40 Type 2 diabetes mellitus with diabetic neuropathy, unspecified; E11.65 Type 2 diabetes mellitus with hyperglycemia; I50.9 Heart failure, unspecified; E11.42 Type 2 diabetes mellitus with diabetic polyneuropathy; E11.69 Type 2 diabetes mellitus with other specified complication; F17.210 Nicotine dependence, cigarettes, uncomplicated; J44.9 Chronic obstructive pulmonary disease, unspecified; Z91.14 Patient's other noncompliance with medication regimen; Z68.27 Body mass index [BMI] 27.0-27.9, adult; Z90.49 Acquired absence of other specified parts of digestive tract; Z79.4 Long term (current) use of insulin; Z79.2 Long term (current) use of antibiotics; Z79.82 Long term (current) use of aspirin; Z79.899 Other long term (current) drug therapy

== ENCOUNTER → 2018-04-05 | Outpatient (CLI) | payer MEDICARE, MEDICAID ==
[~2018-04-05] MED LIST changes: +AUGMENTIN 875-1 EACH PO; +CLONIDINE0.1 PO; +HYDROCODONE-AP1 EAC6 PO; +LYRICA 50 MG50 MG PO; +MINOCIN100 MG PO; +NOVOLOG100 UNIT/1 SUBQ
== END ==
LOC: M.WC 12:52
DX: E11.621 Type 2 diabetes mellitus with foot ulcer (principal); L89.893 Pressure ulcer of other site, stage 3; L97.511 Non-pressure chronic ulcer of other part of right foot limited to breakdown of skin; E11.40 Type 2 diabetes mellitus with diabetic neuropathy, unspecified; I11.0 Hypertensive heart disease with heart failure; I50.9 Heart failure, unspecified; G40.909 Epilepsy, unspecified, not intractable, without status epilepticus; J44.9 Chronic obstructive pulmonary disease, unspecified; F17.200 Nicotine dependence, unspecified, uncomplicated

== ENCOUNTER → 2018-04-12 | Outpatient (CLI) | payer MEDICARE, MEDICAID | LOC: M.WC 04:09 | DX: E11.621 Type 2 diabetes mellitus with foot ulcer (principal); L89.893 Pressure ulcer of other site, stage 3; L97.511 Non-pressure chronic ulcer of other part of right foot limited to breakdown of skin; E11.622 Type 2 diabetes mellitus with other skin ulcer; L97.821 Non-pressure chronic ulcer of other part of left lower leg limited to breakdown of skin; E11.40 Type 2 diabetes mellitus with diabetic neuropathy, unspecified; I11.0 Hypertensive heart disease with heart failure; I50.9 Heart failure, unspecified; G40.909 Epilepsy, unspecified, not intractable, without status epilepticus; J44.9 Chronic obstructive pulmonary disease, unspecified; F17.200 Nicotine dependence, unspecified, uncomplicated ==

== ENCOUNTER 2019-03-09 23:05 | Inpatient (IN) | payer MEDICARE, MEDICAID ==
[~2019-03-09] VITALS: Ht 177.8 cm; Wt 115.1 kg
--- NOTE | ~2019-03-09 | PROC ---
[facility] [address] [place] [address] PROCEDURE REPORT Name: CHUYITA LUA Room: [address] IN M.R.#: [id number] Admission: 03/10/19 Attend Phys: Bob Hendricks MD Discharge: Date of : 62 Report #: [id number] THIS REPORT FOR: //name// For GI report, please see the Provation report in Perceptive 7 content. By: 0706Medical Records Staff HELEN /CAM
--- NOTE | ~2019-03-09 | CON ---
[address] [address] CONSULTATION Name: CHUYITA LUA Room: [address] IN .R.#: [id number] Admission: 03/10/19 Attend Phys: Bob Hendricks MD Discharge: Date of : 62 Report #: [id number] THIS REPORT FOR: //name// CC: Bbo Hendricks [facility] physician/PCP DATE OF SERVICE: 03/10/2019 REASON FOR CONSULT: Cirrhosis of liver, regurgitation, vomiting and inability to thrive. HISTORY OF PRESENT ILLNESS: This is a 58-year-old male with history of hepatitis C, which he claims it was treated back in 2014 when he was in [facility]. The patient reports that he was told that his hepatitis C is clear, but prior to his hepatitis C treatment, he has been told that he had cirrhosis of the liver. He denies drinking alcohol and reports that he has had hepatitis C for many years. The patient also complains of dysphagia, regurgitation, nausea, vomiting and early satiety. He admits that he has poorly controlled diabetes and his sugars mostly run more than 250. Since hospitalization, the patient had CT of abdomen and pelvis, which had shown retroperitoneal mass. The patient is scheduled for biopsy of this mass. There are also a few retroperitoneal lymph nodes noted during this study. He has mild ascites of intraabdominal cavity. The patient reports the reason he came to hospital because he fell on a twig and then his hand got infected. PAST MEDICAL HISTORY: Significant for history of COPD, poorly treated diabetes, diabetic ulcers, osteomyelitis of the foot, septic arthritis of the right foot, hypertension, COPD, CHF, and tinea pedis. ALLERGIES: No known drug allergy. MEDICATIONS: Please refer to MAR. SOCIAL HISTORY: The patient admits to smoking cigarettes, but denies use of drugs or alcohol. Used to live with his brother, but his brother is living out of town, so he will be alone. He admits that he is not compliant with his medications and that is why his blood sugar runs high and he usually does not take his medication for his CHF. FAMILY HISTORY: [place] [address] CONSULTATION Name: CHUYITA LUA [place] Room: [address]#: [id number] Admission: 03/10/19 Attend Phys: Bob Hendricks MD Discharge: Date of : 62 Report #: [id number] PHYSICAL EXAMINATION: GENERAL: Reveals an older than stated age male who is lying in bed with anasarca of the lower extremities. VITAL SIGNS: Include blood pressure of 134/76, respirations 17, pulse 96, temperature 98.5. LUNGS: Decreased breath sounds in the bases. CARDIOVASCULAR: Regular rate. ABDOMEN: Large, soft, nontender. There is positive fluid shift suggestive of cirrhosis. NEUROLOGIC: The patient is alert, oriented x 3. LABORATORY DATA: Reveal sodium of 137, potassium 3.7, BUN is 29, creatinine 1.3, glucose is 176, AST 70, ALT 26, alkaline phosphatase 161, magnesium is 1.6, calcium is 7.1. Total bilirubin 0.3. Lactic acid is 3.1. TSH is 9.9. BNP is 1875. INR is 1.0. WBC is 7.5 with hemoglobin of 13 and platelets of 216. IMAGING: As discussed above. ASSESSMENT AND PLAN: The patient with multiple medical problems including CHF, COPD, diabetes, and cirrhosis who claims that he has had resolution of his hepatitis C when he completed his treatment in 2014. Now, he has a retroperitoneal lesion with positive lymph nodes. The patient is awaiting biopsy of this for diagnosis. Based on his liver numbers, he appears to have decompensated that cirrhosis. His symptoms of nausea, vomiting, early satiety and regurgitation of food all may be secondary to his poorly-controlled diabetes causing diabetic gastroparesis and also directly due to hyperglycemia. We will consider upper endoscopy on Tuesday to further evaluate him for this and also check him for varices. He will also need a gastric emptying test. I will check AFP and also recheck his hepatitis C antibodies to see if he is still seronegative. By: 1330 40Eduard Garcia MD /mitchell
[2019-03-09 23:12] VITALS: BP 182/106
[2019-03-09] MEDS ORDERED: LANTUS100 UNIT/M SUBQ (23:21)
[2019-03-09] MEDS ORDERED: NOVOLOG MI100 UNIT/2 SUBQ (23:21)
--- NOTE | 2019-03-09 23:45 | NUR ---
PT PRESENTED TO ED REPORTING WOUND TO RIGHT HAND FROM FALL.
[2019-03-10] VITALS (7 sets, daily range): BP systolic 128–198; BP diastolic 70–110
[2019-03-10 00:25] LABS: ABSOLUTE EOSINOPHILS 0.1 thou/uL (0.0-0.7); ABSOLUTE LYMPHOCYTES 1.2 thou/uL (0.8-5.3); ABSOLUTE MONOCYTES 0.6 thou/uL (0.0-1.2); ABSOLUTE NEUTROPHILS 5.6 thou/uL (1.6-8.1); BASOPHILS 0.2 %; EOSINOPHILS 1.9 %; HEMATOCRIT 38.8 % (42.0-52.0); LYMPHOCYTES 15.7 %; MCH 29.9 pg (26.0-34.0); MCHC 33.4 g/dL (28.0-37.0); MCV 89.6 fL (80.0-100.0); MONOCYTES 7.7 %; NUCLEATED RBCS 0 /100WBC; PLATELET COUNT* 216 thou/uL (150-400); POLYS 74.5 %; RBC 4.33 mil/uL (4.50-6.00); RDW-CV 14.2 % (10.5-14.5); WBC 7.5 thou/uL (4.0-11.0)
[2019-03-10 00:33] LABS: ANION GAP 9 mmol/L (7-16); BUN 30 mg/dL (7-18); CALCIUM 7.6 mg/dL (8.5-10.1); CHLORIDE 107 mmol/L (98-107); CO2 25 mmol/L (21-32); CREATININE 1.4 mg/dL (0.6-1.3); GLUCOSE 193 mg/dL (70-99); POTASSIUM 3.8 mmol/L (3.5-5.1); SODIUM 141 mmol/L (136-145)
[2019-03-10 00:45] LABS: ALBUMIN 1.4 g/dL (3.4-5.0); ALKALINE PHOSPHATASE 152 U/L (46-116); NT-PRO BRAIN NAT PEPTIDE 1875 pg/mL (<300); SGOT 78 U/L (15-37); SGPT 25 U/L (30-65); TOTAL BILIRUBIN 0.3 mg/dL (<0.1-1.0); TOTAL PROTEIN 6.6 g/dL (6.4-8.2); TROPONIN-I LEVEL <0.06 ng/mL (<0.06)
--- NOTE | 2019-03-10 00:52 | NUR ---
12 LEAD EKG DONE. 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 LAB WORK PENDING. CHEST XRAY DONE. XRAYS OBTAINED TO RIGHT HAND, BILATERAL LOWER EXTREMITIES. IV LASIX GIVEN. IV VANCOMYCIN STARTED.
--- NOTE | 2019-03-10 02:24 | NUR ---
PT RETURNED FROM CT. REPORT GIVEN TO SHELLI MCCULLOUGH. PT BEING ADMITTED TO ROOM 200.
--- NOTE | 2019-03-10 07:26 | NUR ---
PT ADMITTED TO ROOM 200 DURING ACCESS LIAISON; VSS, A+OX4, HTN, WOUNDS, UP SBA, TACHY ON MONITOR. HE IS ABLE TO COMMUNICATE HIS NEED TO STAFF EFFECTIVELY. CURRENT PAIN MEDICATION REGIMEN HAS BEEN ADEQUATE FOR CONTROLLING HIS PAIN UP TO THIS TIME. ORTHO SURGERY CONSULTED.
[2019-03-10 09:50] LABS: ALBUMIN 1.5 g/dL (3.4-5.0); CALCIUM 7.5 mg/dL (8.5-10.1); CREATININE 1.3 mg/dL (0.6-1.3); POTASSIUM 3.7 mmol/L (3.5-5.1); TOTAL BILIRUBIN 0.3 mg/dL (<0.1-1.0); TOTAL PROTEIN 6.9 g/dL (6.4-8.2)
[2019-03-10 10:03] LABS: APTT 27.4 Seconds (25.0-31.3); PROTIME 10.2 Seconds (9.20-11.50)
--- NOTE | 2019-03-10 18:30 | NUR ---
YAO RESTING IN BED. RIGHT HAND AND ARM WERE DRESSED BY ORHTO WITH KURLEX AND HAMZAH WRAP, REWRAP NEEDED. PLAN IS FOR MRI OF THE RIGHT HAND AND ARM ON TUESDAY FOR FURTHER EVALUATION. ALSO SCEDULED IS A NEEDLE NIOPSY OF A LIVER MASS. VITAL SIGNS STABLE, HOURKY ROUNDING COMPLETD FOR PATIENT SAFETY.
[2019-03-11 00:20] VITALS: BP 141/90
[2019-03-11 04:07] VITALS: BP 160/95
--- NOTE | 2019-03-11 07:38 | NUR ---
PT RECIEVED FROM ORTHO. ALERT AND ORIENTED X4. CALL LIGHT WITHIN REACH AND BED IN LOW POSITION. SAT MAINTAINED IN O2. C/O PAIN, REFUSES TO TAKE MEDICATION. HOURLY ROUNDING DONE FOR PT SAFETY.
--- NOTE | 2019-03-11 07:40 | NUR ---
PT CARE ASSUMED AT 1930. SAT MAINTAINED IN RA. ALERT AND ORIENTED X4. SAT MAINTAINED IN RA. CALL LIGHT WITHIN REACH AND BED IN LOW POSITION. PT IS ANXIOUS THIS AM. DENIES PAIN AND SOB. HOURLY ROUNDING DONE FOR PT SAFETY.
[2019-03-11 08:00] VITALS: BP 157/86
[2019-03-11 08:16] LABS: HEMATOCRIT 41.6 % (42.0-52.0); HEMOGLOBIN 14.3 gm/dL (14.0-18.0); MCH 30.4 pg (26.0-34.0); MCHC 34.4 g/dL (28.0-37.0); MCV 88.5 fL (80.0-100.0); MPV 7.2 fl. (7.2-11.1); RBC 4.7 mil/uL (4.50-6.00); RDW-CV 14.3 % (10.5-14.5); WBC 9.9 thou/uL (4.0-11.0)
[2019-03-11 08:46] LABS: CALCIUM 7.6 mg/dL (8.5-10.1); MAGNESIUM 1.4 mg/dL (1.8-2.4)
--- NOTE | 2019-03-11 10:00 | NUR ---
IV WILL NOT FLUSH. UNABLE TO OBTAIN IV ACCESS DESPITE MULTIPLE ATTEMPTS
[2019-03-11 11:30] VITALS: BP 151/90
[2019-03-11 16:00] VITALS: BP 127/87
--- NOTE | 2019-03-11 17:58 | NUR ---
PT ANXIOUS AND TEARFUL THROUGHOUT SHIFT. HAS MANY QUESTIONS ABOUT PLAN OF CARE. QUESTIONS ANSWERED FOR PT WITH CHART REVIEW BUT PT ENCOURAGED TO WRITE QUESTIONS FOR DR ON ROUNDS IN AM. DIFFICULT IV STICK. RIGHT EJ PLACED THIS EVENING. IV ABX INFUSING. PT REPORTS NAUSEA AFTER EATING AND TOLERATES ONLY A SMALL AMT OF SOLIDS. NSR ON MONITOR. DENIES NEED FOR PAIN MEDS. UP TO CHAIR THROUGHTOUT SHIFT. CALLS APPROPRIATELY FOR ASSIST
[2019-03-11 19:40] VITALS: BP 159/98
[2019-03-12] VITALS (13 sets, daily range): BP systolic 116–168; BP diastolic 78–108
[2019-03-12 05:05] LABS: HEMATOCRIT 36.8 % (42.0-52.0); MCH 29.8 pg (26.0-34.0); MCHC 33.2 g/dL (28.0-37.0); MCV 89.9 fL (80.0-100.0); MPV 7.6 fl. (7.2-11.1); RBC 4.09 mil/uL (4.50-6.00); RDW-CV 14.5 % (10.5-14.5); WBC 11.9 thou/uL (4.0-11.0)
[2019-03-12 05:19] LABS: HEMOGLOBIN 12.2 gm/dL (14.0-18.0)
[2019-03-12 05:27] LABS: ALBUMIN 1.3 g/dL (3.4-5.0); CALCIUM 7.3 mg/dL (8.5-10.1); CREATININE 1.1 mg/dL (0.6-1.3); MAGNESIUM 1.4 mg/dL (1.8-2.4); POTASSIUM 3.8 mmol/L (3.5-5.1); TOTAL BILIRUBIN 0.3 mg/dL (<0.1-1.0); TOTAL PROTEIN 6.3 g/dL (6.4-8.2)
--- NOTE | 2019-03-12 07:41 | NUR ---
PT CARE ASSUMED AT 1930. SAT MAINTAINED IN RA. CALL LIGHT WITHIN REACH AND BED IN LOW POSITION. C/O PAIN, MEDICATION GIVEN PER EMAR. ALERT AND ORIENTED X4. HOURLY ROUNDING DONE FOR PT SAFETY.
--- NOTE | 2019-03-12 09:44 | CON ---
[address] [address] CONSULTATION Name: CHUYITA LUA Room: [address] IN .R.#: [id number] Admission: 03/10/19 Attend Phys: Bob Hendricks MD Discharge: Date of : 62 Report #: [id number] THIS REPORT FOR: //name// CC: Bob Hendricks [facility] physician/PCP DATE OF SERVICE: 03/11/2019 INFECTIOUS DISEASE CONSULTATION ATTENDING PHYSICIAN: Attila Bear MD REASON FOR CONSULTATION: Right hand forearm infection, question fungal infection. HISTORY OF PRESENT ILLNESS: This is a 58-year-old white man admitted through the Emergency Room with history of having fallen on a twig and suffered puncture wound on the right hand on 3-4 weeks ago and ever since, having painful drainage, painful lesions on the right hand and right forearm and drainage from the right thumb puncture wound. Discussed the situation with Dr. Bear. The patient is on broad-spectrum antibiotic ____ in view of the chronicity of problem, suspect a fungal infection. PAST MEDICAL HISTORY: Liver cirrhosis secondary to hepatitis C, treated at [facility]. The patient tells me he has chronic liver disease, liver cirrhosis. COPD. Congestive heart failure. Hypertension. Diabetes mellitus. Cholecystectomy. Hepatitis C infection, treated. Stasis dermatitis of legs. SOCIAL HISTORY: See H and P. FAMILY HISTORY: See H and P. REVIEW OF SYSTEMS: As above and see H and P. MEDICATIONS: The patient is currently on insulin glargine, ceftriaxone 1 g IV daily, spironolactone 50 mg daily, promethazine 12.5 mg q.4h. p.r.n. by mouth, ondansetron 4 mg IV p.r.n., bisacodyl 10 mg p.o. daily, magnesium hydroxide 10 mL daily, melatonin 10 mg at bedtime p.r.n., Benadryl 25 mg q.6h. p.r.n., potassium phosphate and magnesium replacement as per protocol. Vancomycin 1 gram IV every 12 hours, Lasix 40 mg IV b.i.d., insulin lispro per sliding scale, pregabalin 50 mg p.o. t.i.d. p.r.n., clonidine p.r.n., hydrocodone, subcutaneous enoxaparin. PHYSICAL EXAMINATION: GENERAL: Chronically ill-appearing white man. VITAL SIGNS: Afebrile on admission, 99.2 this morning, pulse 87, respirations [facility] [address] [place] [address] CONSULTATION Name: CHUYITA LUA Room: [address] IN [facility]#: [id number] Admission: 03/10/19 Attend Phys: Bob Hendricks MD Discharge: Date of : 62 Report #: [id number], BP 160/95. Height 5 feet 10 inches, weight 224 pounds. HEENMT: Missing teeth. No thrush. NECK: Supple. LUNGS: Few rhonchi. HEART: S1, S2. No gallop or murmur. ABDOMEN: Distended with ascites. Nontender liver. GENITALIA: Reveal some tenia cruris type lesion. EXTREMITIES: On the right thumb, there is a draining sinus tract with serous purulent type material. The right forearm is indurated. The MRI of the forearm is pending. Stasis dermatitis legs noted. NEUROLOGIC: Grossly within normal limits. LABORATORY DATA: Sodium 137, potassium 3.7, BUN 29, creatinine 1.3, glucose 224, SGOT 70, magnesium 1.6, albumin 1.5 g/dL. NT-proBNP 1875. TSH 9.9. Alpha fetoprotein tumor marker 4161 ng/mL significantly elevated. Protime 10.2. Vancomycin trough pending. WBC 7,500, hemoglobin 13 g/dL, platelets 216,000. ESR 55 mm per hour. CRP 104.5 mg/L. Hepatitis C studies are pending. MICROBIOLOGY DATA: Negative so far. RADIOLOGY EVALUATION: Right hand x-ray, no acute fracture or dislocation. Chest x-ray, no acute cardiopulmonary process. Tibia fibula reveals soft tissue edema. No bony lesions. CT scan, chest PE protocol negative for pulmonary embolism. Thickening of distal esophagus, 8 x 12 x 11 irregular, heterogeneous mass within retroperitoneal region, possible metastatic disease versus lymphoma as well as cirrhosis of the liver. CT scan of the abdomen and pelvis confirmed this finding. Ultrasound-guided biopsy of the retroperitoneal lesion scheduled for Tuesday. MRI forearm pending. ASSESSMENT: 1. Chronic draining sinus tract, right thumb with induration of right forearm entertain possibility of a fungal infection. 2. History of hepatitis C infection, treated at [facility]. 3. Liver cirrhosis secondary to above. 4. 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 SUGGESTIONS: Recommend await culture results and meanwhile, continue coverage with Rocephin 1 gram IV daily as well as vancomycin. Obviously, we will need to proceed with biopsy of retroperitoneal mass. Dr. Lozano will follow the [place] [address] CONSULTATION Name: CHUYITA LUA Room: 200-P ADM IN .R.#: [id number] Admission: 03/10/19 Attend Phys: Bob Hendricks MD Discharge: Date of : 62 Report #: [id number] Bear, thank you for requesting my suggestions. <ELECTRONICALLY SIGNED> By: Jay Lockwood MD 03/12/19 0944 0455 [id number] Lockwood MD /nt
--- NOTE | 2019-03-12 10:18 | NUR ---
Pt out of room, will attempt to assess later
--- NOTE | 2019-03-12 10:42 | EKG ---
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 : 1960 Requested By: Kang Obrien Order Number: [id number] MD: Joe Chambers Measurements Intervals [place] Rate: 85 P: 11 [place]: 176 QRS: -27 QRSD: 96 T: 32 QT: 389 QTc: 463 Interpretive Statements Sinus rhythm Abnormal R-wave progression, late transition Inferior infarct, old Compared to ECG 03/28/2018 15:56:53 No significant changes Electronically Signed On 03-12-2019 10:41:44 CDT by Joe Chambers [email or web address] <ELECTRONICALLY SIGNED> By: Joe Chambers MD, FACC 03/12/19 1041 0013 0013 Joe Chambers MD, [facility] /EPI
--- NOTE | 2019-03-12 11:44 | NUR ---
LEFT BASILIC VESSEL ACCESSED FOR SINGL LUMEN 4 IRANIAN PICC. LINE PRE-TRIMMED TO 45 CM AND ADVANCED TO THE ZERO HEYDI WITH NO RESISTANCE MET. UPPER ARM CIRCUMFERENCE ABOVE INSERTION SITE = 11". SHERLOCK MAGNET AND 3CG CONFIRMATION OF TIP TERMINATION AT THE CAVOATRIAL JUNCTION APPRECIATED. STYLET REMOVED, LINE FLUSHED AND INSERTINO SITE DRESSED. REPORT GIVEN TO PUJA MCCULLOUGH.
--- NOTE | 2019-03-12 12:05 | NUR ---
Nutrition: Consult for wound on Lt ankle and Rt foot. Pt is currently NPO. Supplement ordered TID Beneprotein. Wt is recorded as 245#. RX: insulin, vanc. LabsL BG 118, alb 1.3, prealb 11.8, elevated LFTs. Liquid BM. ?wt gain. Continue protein supplement once diet advances from NPO. No other nutrition interventions needed at this time. Mild risk. Follow up 03/17/19.
--- NOTE | 2019-03-12 13:44 | NUR ---
Pt is A&O. Pt states that he has been staying with his brother, but states that he is technically homeless. When he's not with his brother, he just "stays with whomever will let me." No DME, but states that he wants a scooter, "i can barely walk and I can't climb stairs." Hx of skilled at [facility]. No hx of HH. Pt wants to dc to skilled at [facility] at [place] to fax referral. Following.
--- NOTE | 2019-03-12 13:59 | NUR ---
D/C CALL CENTRE SUPERVISOR INFORMED OF THE NEED TO SEND REFERRAL TO [facility]. D/C CALL CENTRE SUPERVISOR SPOKE TO OSBALDO IN REGARDS TO FACILTY ALLOWING PATIENT'S TO SMOKE. OSBALDO CONFIRMS THAT FACILITY HAS 'DESIGNATED SMOKING TIMES'. D/C CALL CENTRE SUPERVISOR FAXED PATIENT'S FACESHEET AND CLINICAL INFO. NO PT/OT NOTES AVAILABLE AT THIS TIME. CM WILL REMAIN AVAILABLE TO ASSIST AND FOLLOW NEEDED.
--- NOTE | 2019-03-12 18:23 | NUR ---
ASSUMED PT CARE AT 0700, PT A&O X4, VSS, HAT CLEANER TRACING SINUS RHYTHM/SINUS TACHY, PT OFF UNIT FOR MOST OF DAY FOR MULTIPLE PROCEDURES. ASESSMENT CHARTED, ABLE TO MAKE NEEDS KNOWN, CALL LIGHT IN REACH. SINGLE LUMEN PICC PLACED IN LEFT BASILIC, PT TOLERATED WELL. NPO AT MIDNIGHT FOR PROCEDURE IN AM. PT EDUCATED ON IMPORTANCE OF Q 2 HOUR TURNS, HOURLY ROUNDING COMPLETED.
[2019-03-13] VITALS: BP 120/71
[2019-03-13 04:00] VITALS: BP 134/81
[2019-03-13 04:44] LABS: HEMATOCRIT 37.4 % (42.0-52.0); HEMOGLOBIN 12.4 gm/dL (14.0-18.0); MCHC 33.3 g/dL (28.0-37.0); MCV 90.2 fL (80.0-100.0); MPV 7.9 fl. (7.2-11.1); RBC 4.14 mil/uL (4.50-6.00); RDW-CV 14.5 % (10.5-14.5); WBC 14.4 thou/uL (4.0-11.0)
[2019-03-13 05:05] LABS: ALBUMIN 1.3 g/dL (3.4-5.0); CALCIUM 7.9 mg/dL (8.5-10.1); CREATININE 1.3 mg/dL (0.6-1.3); MAGNESIUM 1.5 mg/dL (1.8-2.4); POTASSIUM 4.1 mmol/L (3.5-5.1); TOTAL BILIRUBIN 0.2 mg/dL (<0.1-1.0); TOTAL PROTEIN 6.7 g/dL (6.4-8.2)
--- NOTE | 2019-03-13 07:02 | NUR ---
PT ALERT AND ORIENTED. VSS ON RA. ASSESSMENT COMPLETED. RT HAND AND BLE EDEMA NOTED. MEDS GIVEN PER EMAR. OMAYRA PICC- BLOOD RETURN NOTED. NPO STATUS. HOURLY ROUNDINGS MADE. CALL LIGHT WITHIN REACH. WILL CONTINUE TO MONITOR.
[2019-03-13 08:00] VITALS: BP 144/80
[2019-03-13 11:23] VITALS: BP 143/97
[2019-03-13 13:13] LABS: HCV QUANT BY PCR 174000 IU/mL (())
--- NOTE | 2019-03-13 14:34 | 2DMMODE ---
[place] [address] 2 D/M-MODE ECHOCARDIOGRAM Name: CHUYITA LUA Room: [address] IN [facility]#: [id number] Admission: 03/10/19 Attend Phys: Bob Hendricks, Discharge: Date of : 62 Date of Service: 03/12/19 1738 Report #: [id number] THIS REPORT FOR: //name// APPROVED REPORT Study performed: 03/12/2019 16:17:49 EXAM: Comprehensive 2D, Doppler, and color-flow Echocardiogram Patient Location: In-Patient Room #: 200 Status: routine BSA: 2.19 HR: 74 bpm BP: 124/87 mmHg Rhythm: NSR Other Information Study Quality: Good Indications Dyspnea 2D Dimensions IVSd: 11.69 (7-11mm) LVOT Diam: 24.38 (18-24mm) LVDd: 50.60 mm PWd: 13.39 (7-11mm) LVDs: 28.20 (25-40mm) Aortic Root: 41.83 mm Aortic Valve AoV Peak Sloan.: 0.68 m/s AO Peak Gr.: 1.84 mmHg LVOT Max P.08 mmHg AO Mean Gr.: 1.11 mmHg LVOT Mean P.86 mmHg LVOT Max V: 0.72 m/s AO V2 VTI: 15.35 cm LVOT Mean V: 0.42 m/s TIRSO (VTI): 4.87 cm2 LVOT V1 VTI: 16.00 cm Mitral Valve E/A Ratio: 0.57 MV Decel. Time: 281.78 ms MV E Max Sloan.: 0.54 m/s MV PHT: 81.72 ms MVA (PHT): 2.69 [place] [address] 2 D/M-MODE ECHOCARDIOGRAM Name: CHUYITA LUA Room: [address] IN [facility]#: [id number] Admission: 03/10/19 Attend Phys: Bob Hendricks, Discharge: Date of : 62 Date of Service: 03/12/19 1738 Report #: [id number] E/Lateral E': 4.91 E/Medial E': 4.91 Medial E' Sloan.: 0.11 m/s Lateral E' Sloan.: 0.11 m/s Left Ventricle The left ventricle is normal size. There is normal LV segmental wall motion. Mild concentric left ventricular hypertrophy. Left ventricular systolic function is normal. LVEF is 60-65%. Grade I - abnormal relaxation pattern. Right Ventricle The right ventricle is normal size. The right ventricular systolic function is normal. Atria The left atrium size is normal. The right atrium size is normal. Aortic Valve The aortic valve is normal in structure. No aortic regurgitation is present. There is no aortic valvular stenosis. Mitral Valve The mitral valve is normal in structure. Trace mitral regurgitation. No evidence of mitral valve stenosis. Tricuspid Valve The tricuspid valve is normal in structure. There is no tricuspid valve regurgitation noted. Pulmonic Valve The pulmonary valve is normal in structure. There is no pulmonic valvular regurgitation. Great Vessels The aortic root is normal in size. IVC is normal in size and collapses >50% with inspiration. Pericardium There is no pericardial effusion. <Conclusion> The left ventricle is normal size. Mild concentric left ventricular hypertrophy. Left ventricular systolic function is normal. LVEF is 60-65%. [place] [address] 2 D/M-MODE ECHOCARDIOGRAM Name: PREETIDannyCHUYITA Room: [address] IN ..#: [id number] Admission: 03/10/19 Attend Phys: Bob Hendricks, Discharge: Date of : 62 Date of Service: 03/12/19 1738 Report #: [id number] Grade I - abnormal relaxation pattern. Trace mitral regurgitation. IVC is normal in size and collapses >50% with inspiration. <ELECTRONICALLY SIGNED> By: Aleksey Guthrie MD, [facility] 03/12/19 1738 37 1738 Aleksey Guthrie MD, FACC /INF
--- NOTE | 2019-03-13 18:07 | PATH ---
[address] [address] PATHOLOGY RPT PROCEDURE Name: CHUYITA LUA Room: [address] IN ..#: [id number] Admission: 03/10/19 Date of : 62 Discharge: Report #: [id number] Path Case #: [id number] [facility] Accession Number: [id number] . 01 Material submitted: . PART A: duodenum - DUODENAL ULCERS PART B: stomach - GASTRIC BIOPSIES PART C: esophagus - DISTAL ESOPHAGUS ULCER. Modifiers: distal . 01 Clinical history: . None provided . 02 Diagnosis: A. Duodenal ulcers: - Severe active duodenitis with focal fundic metaplasia suggesting peptic ulcer disease, negative for granulomas, viral inclusions and dysplasia. . B. Gastric biopsies: - Mild nonspecific chronic gastritis, negative for Helicobacter pylori organisms, granulomas and dysplasia. . C. Distal esophagus ulcer: - Benign gastric/columnar mucosa with mild nonspecific chronic and active inflammation, negative for goblet cells, granulomas and dysplasia. (DESTIN:miriam; 03/13/2019) . . Special stain on B: H. pylori immuno. S/03/13/2019 . 02 Electronically signed: . Russell Kim MD, Pathologist NPI- [id number] . 01 Gross description: . A. Received in formalin labeled "JaneyVahidChuyita, duodenal ulcers," are 7 segments of hernandez soft tissue measuring 1.5 x 1.4 x 0.3 cm in aggregate dimensions and ranging from 0.2 to 0.5 cm in maximum dimension. The specimen is submitted entirely in cassette A1. . B. Received in formalin labeled "Janey Chuyita, gastric biopsies," are 2 segments of hernandez soft tissue measuring 1.0 x 0.2 x 0.1 cm in aggregate dimensions and ranging from 0.3 to 0.7 cm in maximum dimension. The specimen is submitted entirely in cassette B1. . C. Received in formalin labeled "JaneyVahidChuyita, distal esophagus ulcer," is a single segment of hernandez soft tissue measuring 0.3 cm in maximum dimension. The specimen is entirely submitted in cassette [place] [address] PATHOLOGY RPT PROCEDURE Name: CHUYITA LUA Room: [address] IN [facility].#: [id number] Admission: 03/10/19 Date of : 62 Discharge: Report #: [id number] Path Case #: [id number] (TSD; 03/12/2019) TOB/TOB . 02 Pathologist provided ICD-10: K29.80, K29.50, K20.9 . 02 CPT . 903505, 616236, 467991, G00530 Specimen Comment: A courtesy copy of this report has been sent to Specimen Comment: [phone], . Specimen Comment: Report sent to / DR REDD Performed at: 01 [facility] [address], [place], [place] [id number] MD Joel Stone MD Phone: [phone] Performed at: [address] [facility] [address], [place], [place] [id number] MD Russell Kim MD Phone: [phone]
--- NOTE | 2019-03-13 18:34 | NUR ---
ASSUMED PT CARE AT 0700, VSS, TRUST MAIL CLERK TRACING SINUS RHYTHM WITH PAC'S, UP AD KALIE, CALL LIGHT IN REACH. PT OFF UNIT FOR MOST OF DAY FOR PROCEDURES, IND PERFORMED ON RIGHT ARM, PT RETURNED WITH WOUND VAC IN PLACE, RUNNING AT 125/HR. PT REMAINS LETHARGIC, HOURLY ROUNDING COMPLETED, CALL LIGHT REMAINS IN REACH, BED ALARMS ON.
[2019-03-13 22:47] VITALS: BP 134/88
[2019-03-14] VITALS: BP 122/75
[2019-03-14 04:00] VITALS: BP 138/77
--- NOTE | 2019-03-14 06:40 | NUR ---
PATIENT SLEPT OFF AND ON DURING THIS SHIFT. PT REQUESTED PAIN MEDICATION X1 AT HS. PT WITH WOUND VAC ON RT ARM; GOOD SEAL ON ARM WITH VAC SUCTIONING AT 125. PT TEARFUL AT BEGINNING OF SHIFT AND AGAIN THIS MORNING WHEN RESIDENT WAS SPEAKING WITH HIM ABOUT POSSIBLE TRANSFER TO [facility] OR FOR PLASTIC SURGERY. PT DESPERATELY WANTS TO FEEL BETTER AND TO BE ABLE TO WALK AGAIN AND LEAD A NORMAL LIFE. REASSURANCE GIVEN. FREQUENTLY USED ITEMS AND CALL LIGHT WITHIN REACH. SIDERAILS UPX2. PT REMAINS IN CONTACT ISOLATION. WILL CONTINUE TO MONITOR.
[2019-03-14 07:04] LABS: CREATININE 1.4 mg/dL (0.6-1.3); MAGNESIUM 1.9 mg/dL (1.8-2.4); POTASSIUM 4.1 mmol/L (3.5-5.1)
[2019-03-14 08:00] VITALS: BP 145/68
--- NOTE | 2019-03-14 08:00 | NUR ---
ASSUMED PT CARE AT 0700, PT A&O X4, UP AD KALIE, VSS, RA, OUTSIDE SALES ACCOUNT REPRESENTATIVE TRACING SINUS RHYTHM/SINUS TACH. REMAINS EDEMATOUS IN BLE AND SCROTUM UP TO ABDOMEN AND BACK, PT REFUSES SCROTAL SLING, ASCITIES IN ABDOMEN, LS DIMINISHED, FULL ASSESSMENT CHARTED. PT CONT TO VOMIT WHEN EATING D/T GASTRITIS, ERYTHROMYCIN ON BOARD. WOUND VAC RUNNING, DRESSING CLEAN, DRY, AND INTACT, CONTACT ISOLATION IN PLACE. WILL CONT POC.
--- NOTE | 2019-03-14 10:13 | NUR ---
WOUND CARE - PATIENT NOW FIRST DAY POST-OP FOLLOWING I&D OF RIGHT FOREARM/WRIST TO BONE WITH WOUND VAC APPLICATION FOR RIGHT FOREARM ABSCESS AND RADIAL OSTEOMYELITIS, FOLLOWING REPORTED INJURY WHILE WORKING IN YARD AND EARLIER SNAKE BITE. ALERTED BY NURSE THAT VAC WAS ALARMING AIR LEAK. PATIENT AND NURSE DENY ANY PRIOR ALARMS OVERNIGHT, JUST STARTED A BIT AGO. EXTENSIVE DRESSING TO ENTIRE RIGHT FOREARM REMAINS INTACT WITH 2 TRAC PADS WITH Y CONNECTOR TO ONE VAC ULTA. NO OBVIOUS LEAKS IDENTIFIED, BUT REINFORCED DRAPE AROUND TRAC PADS AND AT THUMB WITH SURESITE STRIPS, WITH NO FURTHER ALARMS. MAINTAINED 125 mm HG CONTINUOUS NEGATIVE PRESSURE, BUT DID INCREASE INTENSITY TO HIGH. VAC CANISTER WITH MODERATE AMOUNT OF DARK RED DRAINAGE. GENERALIZED EDEMA AND TENDERNESS OF RIGHT ARM, WITH FAINT GENERALIZED ERYTHEMA. PREOP CULTURES POSITIVE FOR MRSA, WITH OPERATIVE CULTURES PENDING. LITHOGRAPHIC ETCHER, NICKO, WORKING ON TRANSFER TO . PATIENT REPORTS THAT ORTHO SURGEON HAD ADVISED HIM THAT HE WILL NEED A SECOND LOOK/POSSIBLE ADDITIONAL DEBRIDEMENT LATER IN WEEK. WOUND CARE TEAM WILL CONTINUE TO MONITOR, AND PLAN TO CHANGE WOUND VAC LIKELY ON 03/16- PENDING TRANSFER TO , ADDITIONAL SURGERY, ETC. PATIENT WITH SMALL CHRONIC WOUNDS TO BILATERAL LOWER EXT ALSO REPORTEDLY FROM TRAUMA. RIGHT MEDIAL FOOT WITH SMALL SCABBED ABRASION, 1.5 X 0.4 CM. NO DRAINAGE OR ERYTHEMA - CLEANSED AND LEFT OPEN TO AIR. LEFT MEDIAL ANKLE WITH WOUND 0.5 X 0.3 X 0.5 CM WITH PINK DRY BASE AND NO DRAINAGE. SURROUNDING SKIN PINK & INTACT, NO ERYTHEMA, INDURATION OR FLUCTUANCE. AREA NON-TENDER. PATIENT REPORTS THAT IT HAD PREVIOUSLY PROBED TO BONE, BUT EXPLORED WTIH COTTON SWAB WITH MODERATE PRESSURE, AND ONLY 0.5 CM DEEP. AREA CLEANSED, APPLIED SMALL AMOUNT OF SILVERMED GEL, COVERED WITH SMALL FOAM BORDERED DRESSING. MRI OF AREA WITH NO EVIDENCE OF OSTEOMYELITIS.
--- NOTE | 2019-03-14 10:25 | NUR ---
Received order to contact [facility] re: transfer. Called transfer nurse and spoke with Patricia. Faxed requested records, and had radiology records clouded over. Chart copied. Notified physician. Will remain available to assist as needed.
[2019-03-14 11:30] VITALS: BP 142/65
--- NOTE | 2019-03-14 16:15 | NUR ---
HR DIRECTOR INFORMED THAT PATIENT HAS BEEN ACCEPTED TO TRANSFER TO [facility] ROOM 6121. D/C NURSERY NURSE COMPLETED PATIENT TRANSFER FORM AND EMTALA FORM AND HIGHLIGHTED AREAS TO BE COMPLETED BY THE RN. D/C NURSERY NURSE ARRANED TRANSPORT PER PATIENT'S REQUEST FOR 2100. CHART COPIED AND RN INFORMED OF THE PATIENT TIME OF TRANSPORT. CM WILL REMAIN AVAILABLE TO ASSIST AND FOLLOW NEEDED.
[2019-03-14 16:30] VITALS: BP 129/64
--- NOTE | 2019-03-14 17:23 | NUR ---
WOUND CARE NOTE - HAVE BEEN IN ROOM 6 TIMES TODAY ADDRESSING WOUND VAC ALARMS, WITH NURSES ADDRESSING IN BETWEEN. HAVE PATCHED DRAPE AROUND TRAC PADS AND AT THUMB, FOR APPARENT AREAS OF POSSIBLE AIR LEAK. REPLACED CANISTER, NOTING 250 mL OF PINK SEROUS DRAINAGE IN OLD CANISTER. Y CONNECTOR SEEMED TO BE CONTRIBUTING TO AIR LEAK, SO PAGED ORTHO OFFICE AT 1420 WITH NO RESPONSE, CALLED AGAIN AT 1630 INDICATING THAT IT WAS IMPORTANT FOR ME TO TALK TO ONE OF THE ORTHO PHYSICIANS, BUT STILL NO RESPONSE AT THIS TIME. HAD PLANNED TO REQUEST APPROVAL TO REMOVE ONE OF THE TRAC PADS, PATCH DRAPE AT SITE AND USE ONLY ONE TRAC PAD AND TUBING. UPON TRIALING THAT APPROACH BY CLAMPING EACH OF THE TUBINGS, THE FOAM IN THE AREA UNDERLYING THE CLAMPED TRAC PAD DOES NOT COMPRESS, SO APPARENTLY THE FOAM PIECES ARE NOT IN CONTACT, ALTHOUGH THEY APPEAR TO BE UNDER DRESSING. UNABLE TO REMOVE DRAPE AND DRESSING WITHOUT SIGNIFICANT SEDATION, SINCE FOAM IS STAPLED INTO SKIN. EVEMTUALLY OBTAINED A SECOND VAC ULTA MACHINE, AND CONNECTED EACH TRAC PAD AND TUBING SEPARATELY, REMOVING THE Y CONNECTOR, AND PLACED GAUZE PADDING AND ROLLED GAUZE OVER TRAC PAD TO REINFORCE. NO FURTHER ALARMS AT THIS TIME. NOTED PLANS TO TRANSFER TO [facility] AT 2100. ADVISED NURSING STAFF AND ANNEALING TORCH OPERATOR THAT THEY WILL NEED TO HAVE VAC ULTA AVAILABLE (SHOULD NOT BE AN ISSUE), AND WE WILL SEND HIM WITH BOTH TUBINGS CLAMPED (NO MACHINE). IF FURTHER PROBLEMS, NURSING STAFF TO CONTACT ORTHO INFORMATION SYSTEMS SECURITY ANALYST.
--- NOTE | 2019-03-14 18:29 | NUR ---
PT TO DISCHARGE FOR TRANSFER TO [facility], PT EDUCATED ON TRANSFER AND AGREES WITH. THIS NURSE CALLED [facility] TO GIVE REPORT AND RESEARCH NURSE REFUSED AND STATED WOULD LIKE ROLLER HAND NURSE TO CALL AND GIVE REPORT CLOSER TO DEPARTURE TIME. ALL APPROPRIATE PAPERWORK COPIED AND SIGNED, WOUND VACS TO BE DISCONNECTED FROM PT AND CLAMPED. HOURLY ROUNDING COMPLETED.
--- NOTE | 2019-03-14 19:55 | NUR ---
WOUND CARE - RETURN CALL FROM DR. ZAYAS, ORTHO RESIDENT, FROM EARLIER PAGES. ADVISED OF ISSUES WITH WOUND VAC, BUT SEEMS TO BE FUNCTIONING WITHOUT ALARMING SINCE PLACED 2ND WOUND VAC. ANTICIPATE TRANSFER TO [facility] SOON, AND WILL HAVE NURSES CALL ORTHO BACK IF ANY ISSUES.
[2019-03-14 20:15] VITALS: BP 117/74
--- NOTE | 2019-03-14 23:09 | NUR ---
REPORT RECIEVED FROM DAY SHIFT. PT BATHED PER REQUEST BEFORE DC TO RESEARCH. EJ REMOVED. NIGHT TIME MEDS GIVEN. VITAL SIGNS OBTAINED PER CHARTING. REPORT GIVEN TO TELLY MCCULLOUGH. INFORMED PTS ROOM HAD CHANGED TO ROOM 6104. [facility] NOTIFIED. [facility] ARRIVED AT 2114. WOUND VAC TUBES CLAMPED AND REMOVED FROM MACHINE. TELE MONITOR REMOVED. REPORT GIVEN TO [facility], PT LEFT WITH EMS VIA CART WITH HIS BELONGINGS. TELLY INFORMED OF PT LEAVING FACILITY. [facility] CALLED PER PT REQUEST.
--- NOTE | 2019-03-15 18:06 | PATH ---
[address] [address] PATHOLOGY RPT PROCEDURE Name: CHUYITA LUA Room: [address]#: [id number] Admission: 03/10/19 Date of : 62 Discharge: 03/14/19 Report #: [id number] Path Case #: [id number] [facility] Accession Number: [id number] . 01 Material submitted: . peritoneum - RETRO PERITONEAL MASS . 01 Clinical history: . 4 alpha protein Liver cancer vs seminoma vs lymphoma . 02 Diagnosis: Retroperitoneal mass, image guided core biopsies: - POORLY DIFFERENTIATED HEPATOCELLULAR CARCINOMA. SEE COMMENT. (DESTIN:pit; 03/15/2019) . Special studies report received from [facility], [address] [place] [address], [address], [place], [address], on case [id number], labeled with their number [id number], dated 03/14/2019. . Flow Cytometry: Hematologic Neoplasia Assessment . Clinical History Retroperitoneal mass . Indication for Study Evaluation for hematolymphoid neoplasia . Specimen Tissue, Retroperitoneal . Viability 22% (7AAD exclusion) . Interpretation Tissue, Retroperitoneal: - In the sample analyzed, there is no evidence for a B-cell lymphoma (limited study). . Comments Hodgkin lymphoma and some large cell lymphomas cannot be categorically excluded by flow cytometric analysis. A limited panel of antibodies was performed due to low cell yield. Correlation with the morphologic findings and other clinical data is recommended. . Results should be interpreted with caution due to reduced viability of the specimen (22%). [place] [address] PATHOLOGY RPT PROCEDURE Name: CHUYITA LUA Room: [address]#: [id number] Admission: 03/10/19 Date of : 62 Discharge: 03/14/19 Report #: [id number] Path Case #: [id number] Lymphocytes: 7% A limited panel of antibodies (kappa, lambda, CD3, CD4, CD5, CD8, CD10, CD19, CD20, CD38, CD45, and CD57) was performed due to low cell yield. There is a mixed population of B-lymphocytes (0.4%) and T-lymphocytes (6.3%). No B-cell surface light chain restriction is detected. T-cells express CD3 and CD5. Other acharya T-cell antigens are not evaluated. The CD4:CD8 ratio is normal at 1.6:1. CD45 Negative 93% No significant reactivity with the markers tested Events/Debris: (may represent degenerated cells, unlysed red blood cells, debris, etc.) . . Morphologic Evaluation A slide was reviewed for software quality specialist purposes only. . Specimen Description Total Cell Yield: 0.09 X 10 and 6 . Reagent(s) Used CD3, CD4, CD5, CD8, CD10, CD19, CD20, CD38, CD45, CD57, kappa, lambda . at [facility]. Odalys Rahman MD Hematopathologist . . Intended Use Flow cytometry is optimally used to immunophenotypically characterize abnormal populations when they are detected. Negative flow cytometry results do not exclude lymphoma or neoplasia. Possible false negative flow cytometry results may occur in, but are not limited to, the following: neoplastic cells in Hodgkin lymphoma are not typically adequately represented by routine clinical flow cytometry; neoplastic cells may be lost or inadequately represented due to degeneration, sample processing, sampling artifact, or patchy involvement; plasma cells are typically underrepresented by flow cytometry; immature cells/blasts may be underrepresented due to hemodilution; myeloproliferative disorders and low grade myelodysplasia may not have immunophenotypic abnormalities or increased blasts. Correlation with all available clinical, laboratory, and morphologic data is always necessary to assess for the possibility of false negative flow cytometry results and to establish a diagnosis. Each marker in this analysis was used to assess for potential antigenic abnormalities or to evaluate detected abnormalities. . Disclaimer(s) This test was performed at [facility] [employer] [facility]. at [address] [place] [address], [phone] - Manager Advanced: [place] [address] PATHOLOGY RPT PROCEDURE Name: CHUYITA LUA Room: [address] IN [facility]#: [id number] Admission: 03/10/19 Date of : 62 Discharge: 03/14/19 Report #: [id number] Path Case #: [id number] MD Lay. [facility] is a business unit of [facility] [employer] a wholly-owned subsidiary of [employer]. . Any image or images that accompany this report are patient representative images only and should not be used to render a diagnosis. . This test was developed and its performance characteristics determined by [facility]. It has not been cleared or approved by the Food and Drug Administration (FDA). The FDA has determined that such clearance or approval is not necessary. . For inquiries, the physician may contact Lab: [phone] . A complete copy of the report is on file. . Professional services performed by [facility]. at [address], [place] [address]. Technical services performed by [facility]. at [address], [place] [address]. . (AMJ 03/14/2019) . [facility]/03/15/2019 . 02 Comment: Multiple tissue cores show nests/patches of neoplastic cells characterized by pleomorphic hyperchromatic nuclei frequently including very large and multinucleated forms, and often with large nucleoli and having abundant amphophilic cytoplasm. Tumor necrosis is present and inflamed stroma is also noted. A panel of properly controlled immunohistochemical studies performed on A1 highlight the neoplastic cells as follows supporting the diagnosis: . Hepato specific antigen (HepPar1): Positive Chromogranin: Negative S100: Negative CD117: Negative Keratin HEBER: Positive Alpha-fetoprotein: Negative . Dr. Bear notified at approximately 1530 on 03/15/2019. Reviewed with Dr. Sam Grey who agrees with the diagnosis. (DESTIN:pit; 03/15/2019) . 02 Electronically signed: . Russell Kim MD, [place] [address] PATHOLOGY RPT PROCEDURE Name: CHUYITA LUA W Room: [address] IN [facility].#: [id number] Admission: 03/10/19 Date of : 62 Discharge: 03/14/19 Report #: [id number] Path Case #: [id number] NPI- [id number] . 01 Gross description: . The specimen is received in formalin labeled "Chuyita Lua". The specimen source is not listed on the container. The source is listed on the requisition as "retro paritinial mass". Received are multiple needle core fragments of pale hernandez soft tissue ranging from 0.1 to 0.9 cm in length and measuring 0.1 cm each in diameter. The specimen is submitted entirely in cassettes A1 through A3. . A portion of the specimen is also received in RPMI labeled "Chuyita Lua". This tissue is forwarded to an outside laboratory for flow cytometry studies. ([facility]; 03/13/2019) XDC/XDC . 02 Pathologist provided ICD-10: C22.0 . 02 CPT . 061588, R25753, B67016 Specimen Comment: A courtesy copy of this report has been sent to Specimen Comment: [phone]. Specimen Comment: Report sent to Performed at: 01 [facility] [address], [place], [place] [id number] MD Joel Stone MD Phone: [phone] Performed at: 02 [facility] [address], [place], [place] [id number] MD Russell Kim MD Phone: [phone]
--- NOTE | 2019-03-16 13:08 | PATH ---
[address] [address] PATHOLOGY RPT PROCEDURE Name: CHUYITA LUA Room: [address] IN ..#: [id number] Admission: 03/10/19 Date of : 62 Discharge: 03/14/19 Report #: [id number] Path Case #: [id number] [facility] Accession Number: [id number] . 01 Material submitted: . PART A: forearm - RIGHT FOREARM FASCIA. Modifiers: right PART B: forearm - RADIUS BONE OSTEOMYELITIS RIGHT FOREARM. Modifiers: right . 01 Clinical history: . Preop DX: Right forearm deep infection Postop DX: Necrotizing fasciatis right forearm . 02 Diagnosis: A. Right forearm fascia: - Segment of benign skeletal muscle/fibrofatty connective tissue with mild chronic and acute inflammation and focal necrosis and separate segment of benign fibromembranous tissue with extensive chronic and acute inflammation and necrosis. . B. Radius bone osteomyelitis right forearm: - Fragments of benign and viable cancellous bone with evidence of osteomyelitis. . (DESTIN:mml:db; 03/16/2019) QLM/03/16/2019 . 02 Electronically signed: . Russell Kim MD, Pathologist NPI- [id number] . 01 Gross description: . A. Received in formalin labeled "Chuyita Lua, right forearm fascia," are two segments of hernandez-brown soft tissue measuring 2.0 x 0.8 x 0.3 cm and 2.4 x 0.5 x 0.4 cm in greatest dimensions. Both segments are serially sectioned to reveal hernandez-brown cut surfaces. Both segments are submitted representatively in cassette A1. . B. Received in formalin labeled "Chuyita Lua, radius bone osteomyelitis Rt forearm," is a 1.1 x 0.2 x 0.1 cm aggregate of granular, yellow-hernandez bone fragments. The specimen is submitted entirely in cassette B1, following light decalcification. (DAC; 03/14/2019) XDC/XDC . 02 Pathologist provided ICD-10: M79.9, M86.8X3 . 02 [place] [address] PATHOLOGY RPT PROCEDURE Name: CHUYITA LUA [place] Room: [address] IN [facility].#: [id number] Admission: 03/10/19 Date of : 62 Discharge: 03/14/19 Report #: [id number] Path Case #: [id number] Specimen Comment: A courtesy copy of this report has been sent to Specimen Comment: [phone], . Specimen Comment: Report sent to / DR REDD Performed at: [address], [place], [place] [id number] MD Joel Stone MD Phone: [phone] Performed at: 02 [facility] [address], [place], [place] [id number] MD Russell Kim MD Phone: [phone]
--- NOTE | 2019-03-20 09:22 | OP ---
[address] [address] OPERATIVE REPORT Name: CHUYITA LUA Room: [address] IN M.R.#: [id number] Admission: 03/10/19 Attend Phys: Bob Hendricks MD Discharge: 03/14/19 Date of : 62 Report #: [id number] THIS REPORT FOR: //name// CC: Bob Hendricks [facility] physician/PCP PREOPERATIVE DIAGNOSIS: Right forearm deep infection with loculated abscess, subfascial. POSTOPERATIVE DIAGNOSIS: Necrotizing fasciitis, right radial dorsal forearm. PROCEDURE: 1. Irrigation and debridement of right forearm down to bone including bone. 2. Application of wound VAC. SURGEON: Attila Lamb DO. SOLAR ENERGY SALES SPECIALIST: Sergo Mendiola DO ANESTHESIA: General. ANTIBIOTICS: The patient on schedule and this was confirmed. FLUIDS: 1250 mL lactated Ringer's. ESTIMATED BLOOD LOSS: 300 mL. COMPLICATIONS: None. SPECIMENS: Multiple cultures of the abscess taken as well as tissue cultures taken deep, sent for Gram stain culture and sensitivity to include aerobic, anaerobic, fungal, acid fast. Specimens sent as permanent to pathology. I spoke directly with the pathologist on the phone discussing the intraoperative findings and then a recommendation on the fascia. SPECIMEN: Bone sent as specimen for osteomyelitis. DRAINS: None. CONDITION: The patient is stable to PACU. IMPLANTS: Wound VAC. INDICATIONS: The patient was admitted to [facility] with multiple issues and comorbidities. My partner, Dr. Smith was consulted over the weekend to evaluate the patient, he ordered an MRI prior to Dr. Brewer saw the patient on Tuesday. The MRI had not been performed. [place] [address] OPERATIVE REPORT Name: CHUYITA LUA Room: [address]#: [id number] Admission: 03/10/19 Attend Phys: Bob Hendricks MD Discharge: 03/14/19 Date of : 62 Report #: [id number] okay per reports from Dr. Smith and Dr. Brewer as well as from the patient and this has been going on for over a month. The patient says he thought it would just get better and did not present in a timely fashion. Dr. Smith was called regarding the results of the MRI. Dr. Smith and I reviewed the MRI showing that there was an extensive soft tissue infection that appeared to be subfascial with evidence of signs of likely osteomyelitis and this tracked all the way in the dorsal radial compartment extending into the first dorsal extensor compartment. After the timeout consistent with his clinical examination, I had a long conversation with the patient in the preoperative area and talked about what his treatment options were, the diagnoses, the imaging findings and the recommendation for surgery that also included detailed discussion of risks and complications. Please see clinical progress notes for full details and discussion and addressing his question, he said he understood what was presented and whether he will be consenting for and he wished to proceed with surgery. We obtained consent. DESCRIPTION OF PROCEDURE: I marked the right upper extremity in the presence of the operating team members and everyone agreed this was correct. He was taken back to the operative suite where a briefing was performed indicating correct patient, procedure, site, antibiotics and implants and the wound VAC was present and available. All team members agreed. He was transferred from the operating table in supine position. General anesthetic was performed, a well-padded tourniquet was placed proximally on the right upper extremity and then the right upper extremity was sterilely prepped and draped in standard fashion. We marked out our incision. This was for a dorsal. It should be noted I directly went over the MRI findings with the radiologist in person. Surgical planning appeared that this was mostly contained based on the MRI to the dorsal radial aspect and was subfascial and first extensor compartment. We therefore marked our incision out extending throughout the length of the forearm on the dorsal radial aspect. We began by having an official timeout confirming the correct patient, procedure, site, antibiotics and the wound VAC was present and available. We then began our incision. We started off without the tourniquet. We began distally. Once we were able to work through the skin, it became evident that it was quite hyperemic due to this prolonged infection and without the tourniquet as it was difficult to see the anatomy, it was distorted due to the destruction from the infection. Once we continued to work through this and once we got the area of the first dorsal compartment, the infection had completely eroded through soft tissue structures in that area including the tendon sheath. There was complete destruction of the tendons in the first dorsal compartment that is consistent with his preoperative examination for which he could not extend his thumb at all. He also had evidence based on our examination of the PIN type palsy with not active extension at the wrist and only extending through the interphalangeal joints, continuing this proximally. This communicated entirely with again a lot of destruction of the tissue, subfascial. Once we had incised the fascia in the area near the extensor retinaculum, our first large area of purulence was identified. Significant [address] [address] OPERATIVE REPORT Name: CHUYITA LUA Room: [address] IN [facility].#: [id number] Admission: 03/10/19 Attend Phys: Bob Hendricks MD Discharge: 03/14/19 Date of : 62 Report #: [id number] purulence was expressed from this area creating quite a space. Again tendon destruction of the first dorsal compartment. Down to the backside of the radius, we took all this tissue and abscess fluid for culture as well as tissue culture labeled appropriately and had a specimen. Timeout confirmed and being sent to the lab. We also sent rongeur from the dorsal aspect of the radius and sent this to pathology for osteomyelitis and that was confirmed. After official timeout this was tunneling all the way up and continued to track, this was expected based on the MRI findings. We continued; therefore our incision all the way up proximally working our way to the mobile ind. Once we incised through the fascial layer, there was significant expression of purulent material. We again took specimens of this labeled appropriately and confirmed on this timeout that was performed in the lab. At that point in time, I called Dr. Kim and spoke with Dr. Kim personally on the phone. Clinical findings in the OR were consistent with a necrotizing fasciitis type of infection. Recommendations with Dr. Kim was for permanent pathology specimen involving the fascia. I therefore took that specimens and confirmed on a specimen timeout. Significant muscle in this area including at the mobile wad and working down. The muscle did not show any contractility and capacity to bleed, had concerning color and consistency, all necrotic muscle was debrided that was not viable any muscle that had some contractility bleeding and consistency was left, but there was quite a lot of destruction. Once we had fully debrided the area, there was no more obvious purulence or signs of obvious spread of the infection. We thoroughly irrigated with 9 liters of normal saline. We then fashioned a wound VAC, strips, suction pad and activated that, let down tourniquet, total tourniquet time was 61 minutes Two suction pads were placed on to a Y-connector and then placed to our suction canister and had a low leak rate and was functioning appropriately with expected sanguinous material coming from the suction devices. A debriefing was performed where we confirmed the procedure, blood loss. All counts were correct and final. All specimens were labeled appropriately and sent to pathology and lab. All team members agreed. He was extubated and transferred off the operating table and taken to PACU in stable. POSTOPERATIVE COURSE AND EVALUATION: He had a number for significant other. He did give permission for us to call. We have tried calling before surgery and I tried calling after surgery multiple times, no answer was obtained. Did leave a message with my personal contact information and encouraged them to call me back. He was resting in the PACU with stable vital signs. Pain overall controlled. No changes neurovascular exam which when compared to preoperative. The hand was well perfused. Palpable radial pulse. His deficit in regards to wrist extension, thumb extension only extending to the IP joints continued to persist and this was expected. He will be on antibiotics per Infectious Disease. Wound care consult for help with VAC management. DVT prophylaxis will be pharmacological and mechanical with the help [place] [address] OPERATIVE REPORT Name: CHUYITA LUA Room: [address] IN [facility].#: [id number] Admission: 03/10/19 Attend Phys: Bob Hendricks MD Discharge: 03/14/19 Date of : 62 Report #: [id number] Nonweightbearing in that extremity. Based on the significance of his intraoperative findings, I believe this will require repeat washouts and ideally consultation of a plastic surgeon as he may have significant tissue loss. I do believe this would be better served in a tertiary care center. I am going to work on setting up and transfer. I will personally be going over the surgical findings and concerns for need for higher level of care with not only attending with Infectious Disease as well. I spoke with case management and left my personal number. It should also be noted that I will be another hospital and immediately available by phone. I have personally called and discussed this case with my partner, Dr. Adam. He will be in the office and at this [facility] we will be working together to get this patient on the appropriate care needed. <ELECTRONICALLY SIGNED> By: Attila Lamb DO 03/20/19 0922 0052 [id number] Lamb DO /nt
== END 2019-03-14 23:23 | disposition short-term general hospital (02) | DRG 500 ==
LOC: M.ERS 23:05 → M.2W 03-10 01:33 → M.TBA-ER 03-10 01:33 → M.2W 03-10 01:55
PROVIDERS: Family Medicine; Internal Medicine; ADMIT Internal Medicine
PROC: 3E1U38Z Irrigation of Joints using Irrigating Substance, Percutaneous Approach (ICD-10-PCS; principal; 2019-03-10)
PROC: 0PDH0ZZ Extraction of Right Radius, Open Approach (ICD-10-PCS; principal; 2019-03-10)
PROC: 0DB68ZX Excision of Stomach, Via Natural or Artificial Opening Endoscopic, Diagnostic (ICD-10-PCS; 2019-03-12)
PROC: 0WBH3ZX Excision of Retroperitoneum, Percutaneous Approach, Diagnostic (ICD-10-PCS; 2019-03-12)
PROC: 0DB98ZX Excision of Duodenum, Via Natural or Artificial Opening Endoscopic, Diagnostic (ICD-10-PCS; 2019-03-12)
PROC: 0DB58ZX Excision of Esophagus, Via Natural or Artificial Opening Endoscopic, Diagnostic (ICD-10-PCS; 2019-03-12)
DX: M86.8X8 Other osteomyelitis, other site (principal); M72.6 Necrotizing fasciitis; L03.113 Cellulitis of right upper limb; B48.8 Other specified mycoses; I50.32 Chronic diastolic (congestive) heart failure; K22.10 Ulcer of esophagus without bleeding; K76.6 Portal hypertension; I85.00 Esophageal varices without bleeding; I13.0 Hypertensive heart and chronic kidney disease with heart failure and stage 1 through stage 4 chronic kidney disease, or unspecified chronic kidney disease; L02.413 Cutaneous abscess of right upper limb; E11.69 Type 2 diabetes mellitus with other specified complication; E11.40 Type 2 diabetes mellitus with diabetic neuropathy, unspecified; J44.9 Chronic obstructive pulmonary disease, unspecified; K74.60 Unspecified cirrhosis of liver; K66.9 Disorder of peritoneum, unspecified; F17.210 Nicotine dependence, cigarettes, uncomplicated; I16.0 Hypertensive urgency; N18.2 Chronic kidney disease, stage 2 (mild); K44.9 Diaphragmatic hernia without obstruction or gangrene; E03.9 Hypothyroidism, unspecified; E11.22 Type 2 diabetes mellitus with diabetic chronic kidney disease; K31.89 Other diseases of stomach and duodenum; K26.9 Duodenal ulcer, unspecified as acute or chronic, without hemorrhage or perforation; K76.89 Other specified diseases of liver; K73.9 Chronic hepatitis, unspecified; B95.62 Methicillin resistant Staphylococcus aureus infection as the cause of diseases classified elsewhere; Z90.49 Acquired absence of other specified parts of digestive tract; Z86.19 Personal history of other infectious and parasitic diseases; M77.9 Enthesopathy, unspecified

== ENCOUNTER 2019-06-21 09:19 | Inpatient (IN) | payer MEDICARE, MEDICAID ==
[~2019-06-21] VITALS: Ht 175.3 cm; Wt 113.4 kg
[2019-06-21] VITALS (20 sets, daily range): BP systolic 82–145; BP diastolic 42–85
--- NOTE | ~2019-06-21 | EKG ---
[place] [address] ELECTROCARDIOGRAM REPORT Name: PREETIMYKE DelgadoCHUYITA Room: [address] ADM IN M.R.#: [id number] Admission: 06/21/19 Attend Phys: Audrey Christian Discharge: Date of : 62 Report #: [id number] THIS REPORT FOR: //name// [facility] ED Test Date: 2019-06-21 Test Time: 15:09:33 Pat Name: CHUYITA LUA Department: Room: [address] Gender: M Cna Caregiver: LEOPOLDO : 1960 Requested By: Vikash Parikh Order Number: [id number] Reading MD: Measurements Intervals [place] Rate: 107 P: CT: QRS: 30 QRSD: 94 T: 86 QT: 336 QTc: 449 Interpretive Statements Atrial fibrillation Low voltage, extremity and precordial leads Probable anteroseptal infarct, old ST elevation, consider inferior injury Compared to ECG 03/10/2019 00:13:57 Low QRS voltage now present ST (T wave) deviation now present Sinus rhythm no longer present Myocardial infarct finding still present [email or web address] By: D: 109 150 Epiphany Epiphany, /BONG
--- NOTE | ~2019-06-21 | EKG ---
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 : 1960 Requested By: Belen Lay Order Number: [id number] MD: Measurements Intervals [place] Rate: 107 P: [place]: QRS: 30 QRSD: 94 T: 86 QT: 336 QTc: 449 Interpretive Statements Atrial fibrillation Low voltage, extremity and precordial leads Probable anteroseptal infarct, old ST elevation, consider inferior injury Compared to ECG 03/10/2019 00:13:57 Low QRS voltage now present ST (T wave) deviation now present Sinus rhythm no longer present Myocardial infarct finding still present [email or web address] By: 1509 1509 Epiphany Epiphany, /BONG
[~2019-06-21 09:19] MED LIST changes: +LANTUS100 UNIT/M SUBQ; +NOVOLOG MI100 UNIT/2 SUBQ
[2019-06-21 09:53] LABS: MPV 7.5 fl. (7.2-11.1); NUCLEATED RBCS 0 /100WBC
[2019-06-21 10:05] LABS: CALCIUM 7.9 mg/dL (8.5-10.1); CREATININE 1.3 mg/dL (0.6-1.3); HEMATOCRIT 29.6 % (42.0-52.0); HEMOGLOBIN 9.7 gm/dL (14.0-18.0); MCH 29.4 pg (26.0-34.0); MCHC 32.7 g/dL (28.0-37.0); MCV 89.8 fL (80.0-100.0); PLATELET COUNT* 137 thou/uL (150-400); POTASSIUM 3.9 mmol/L (3.5-5.1); RBC 3.29 mil/uL (4.50-6.00); RDW-CV 17.2 % (10.5-14.5); WBC 14.2 thou/uL (4.0-11.0)
[2019-06-21 10:10] LABS: ALBUMIN 1.1 g/dL (3.4-5.0); TOTAL BILIRUBIN 0.3 mg/dL (<0.1-1.0); TOTAL PROTEIN 6.4 g/dL (6.4-8.2)
[2019-06-21 10:20] LABS: BE -4.7 mmol/L (-2 to +3); PCO2 32.8 mmHg (35.0-45.0); PO2 66.8 mmHg (75.0-100.0); pH 7.388 (7.340-7.450)
[2019-06-21 10:35] LABS: ABSOLUTE LYMPHOCYTES 0.3 thou/uL (0.8-5.3); ABSOLUTE MONOCYTES 0.1 thou/uL (0.0-1.2); ABSOLUTE NEUTROPHILS 13.8 thou/uL (1.6-8.1); ANISOCYTOSIS 1+; HYPOCHROMASIA Occasional; PLATELET ESTIMATE DECREASED; POIKILOCYTOSIS 1+
[2019-06-21 11:57] LABS: MAGNESIUM 1.3 mg/dL (1.8-2.4); PHOSPHORUS* 2.9 mg/dL (2.5-4.9)
[2019-06-21 12:02] LABS: APTT 29.3 Seconds (25.0-31.3); INR 1.1; PROTIME 11.7 Seconds (9.20-11.50)
[2019-06-22] VITALS (20 sets, daily range): BP systolic 127–150; BP diastolic 68–92
[2019-06-22 03:57] LABS: HEMATOCRIT 28.5 % (42.0-52.0); HEMOGLOBIN 9.2 gm/dL (14.0-18.0); MCHC 32.4 g/dL (28.0-37.0); MCV 89.7 fL (80.0-100.0); MPV 8.1 fl. (7.2-11.1); RBC 3.18 mil/uL (4.50-6.00); WBC 17.2 thou/uL (4.0-11.0)
[2019-06-22 04:36] LABS: ALBUMIN 1.1 g/dL (3.4-5.0); CALCIUM 8.1 mg/dL (8.5-10.1); CREATININE 1.6 mg/dL (0.6-1.3); MAGNESIUM 2.1 mg/dL (1.8-2.4); POTASSIUM 4.5 mmol/L (3.5-5.1); TOTAL BILIRUBIN 0.3 mg/dL (<0.1-1.0); TOTAL PROTEIN 6.5 g/dL (6.4-8.2)
--- NOTE | 2019-06-22 12:27 | EKG ---
[place] [address] ELECTROCARDIOGRAM REPORT Name: CHUYITA LUA Room: [address] ADM IN M.R.#: [id number] Admission: 06/21/19 Attend Phys: Audrey Christian Discharge: Date of : 62 Report #: [id number] THIS REPORT FOR: //name// [facility] ED Test Date: 2019-06-21 Test Time: 15:09:33 Pat Name: CHUYITA LUA Department: Room: [address] Gender: M Herb Digger: LEOPOLDO : 1960 Requested By: Vikash Parikh Order Number: [id number] Sachin MD: Kevin Villafuerte Measurements Intervals [place] Rate: 107 P: [place]: QRS: 30 QRSD: 94 T: 86 QT: 336 QTc: 449 Interpretive Statements Atrial fibrillation Low voltage, extremity and precordial leads Probable anteroseptal infarct, old ST elevation, consider inferior injury Compared to ECG 03/10/2019 00:13:57 Low QRS voltage now present ST (T wave) deviation now present Sinus rhythm no longer present Myocardial infarct finding still present Electronically Signed On 06-22-2019 12:26:56 CDT by Kevin Villafuerte [email or web address] <ELECTRONICALLY SIGNED> By: Renetta Villafuerte MD, FACC 06/22/19 1226 1509 1509 Renetta Villafuerte MD, FAC /EPI
--- NOTE | 2019-06-22 12:30 | EKG ---
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 : 1960 Requested By: Vikash Parikh Order Number: [id number] Reading MD: Kevin Villafuerte Measurements Intervals [place] Rate: 187 P: [place]: QRS: 6 QRSD: 86 T: 4 QT: 252 QTc: 445 Interpretive Statements Atrial fibrillation with rapid V-rate Low voltage, extremity leads Compared to ECG 03/10/2019 00:13:57 Low QRS voltage now present Sinus rhythm no longer present Myocardial infarct finding no longer present Electronically Signed On 06-22-2019 12:30:38 CDT by Kevin Villafuerte [email or web address] <ELECTRONICALLY SIGNED> By: Renetta Villafuerte MD, FACC 06/22/19 1230 175 1753 Renetta Villafuerte MD, [facility] /EPI
[2019-06-22 19:38] LABS: URINE BILIRUBIN NEGATIVE (Negative); URINE BLOOD 1+ (Negative); URINE CLARITY CLEAR; URINE COLOR YELLOW; URINE GLUCOSE-RANDOM NEGATIVE (Negative); URINE KETONES NEGATIVE (Negative); URINE LEUKOCYTES NEGATIVE (Negative); URINE NITRITE NEGATIVE (Negative); URINE PROTEIN 2+ (Negative); URINE SPECIFIC GRAVITY 1.025 (1.005-1.030); URINE UROBILINOGEN 0.2 E.U./dl (0.2-1.0)
[2019-06-22 19:55] LABS: BACTERIA None Seen /HPF (None Seen); HYALINE CASTS 0-3 Few /LPF (None Seen); SQUAMOUS 0-3 Few /LPF (0-3); URINE RBC 0-2 Rare /HPF (0-2); URINE WBC 0-5 Rare /HPF (0-5)
[2019-06-22 19:56] LABS: AMORPHOUS URATES Few /LPF (None Seen)
[2019-06-23] VITALS (17 sets, daily range): BP systolic 109–172; BP diastolic 83–96
[2019-06-23 03:51] LABS: ABSOLUTE LYMPHOCYTES 0.4 thou/uL (0.8-5.3); ABSOLUTE MONOCYTES 0.5 thou/uL (0.0-1.2); ABSOLUTE NEUTROPHILS 14.8 thou/uL (1.6-8.1); BASOPHILS 0.3 %; HEMATOCRIT 29.4 % (42.0-52.0); HEMOGLOBIN 9.5 gm/dL (14.0-18.0); LYMPHOCYTES 2.6 %; MCH 28.7 pg (26.0-34.0); MCHC 32.3 g/dL (28.0-37.0); MCV 88.8 fL (80.0-100.0); NUCLEATED RBCS 0 /100WBC; PLATELET COUNT* 120 thou/uL (150-400); POLYS 94.1 %; RBC 3.31 mil/uL (4.50-6.00); RDW-CV 17.2 % (10.5-14.5); WBC 15.7 thou/uL (4.0-11.0)
[2019-06-23 04:05] LABS: ALBUMIN 1.2 g/dL (3.4-5.0); CALCIUM 8.1 mg/dL (8.5-10.1); CREATININE 1.6 mg/dL (0.6-1.3); POTASSIUM 4.9 mmol/L (3.5-5.1); TOTAL BILIRUBIN 0.3 mg/dL (<0.1-1.0); TOTAL PROTEIN 6.7 g/dL (6.4-8.2)
--- NOTE | 2019-06-25 08:44 | CON ---
[address] [address] CONSULTATION Name: STEPHENIEPHILIPCHUYITA Room: [address] IN M.R.#: [id number] Admission: 06/21/19 Attend Phys: Audrey Christian Discharge: 06/24/19 Date of : 62 Report #: [id number] THIS REPORT FOR: //name// CC: MARIA DE JESUS physician/PCP Vikash Parikh [facility] DATE OF SERVICE: 06/22/2019 REASON FOR CONSULTATION: Advanced hepatocellular carcinoma. Current treatment, the patient is supposed to start on Cyramza. HISTORY OF PRESENT ILLNESS: A 58-year-old male who had multiple medical comorbidities including advanced hepatocellular carcinoma. The patient previously was diagnosed based on CT scan-guided biopsy in 03/2019, which showed poorly differentiated hepatocellular carcinoma. The patient received embolization and Y90. The patient could not tolerate oral sorafenib. He is supposed to start ramucirumab (Cyramza) on 06/18; however, per the patient, was not able to obtain a urine sample. The patient was admitted to the hospital with AFib with RVR. He reported back pain and in addition to chest pain, chest x-ray workup showed the bilateral lower lobe pneumonia with atelectasis. Today, the patient was seen and evaluated in the Intensive Care Unit. REVIEW OF SYSTEMS: Negative except the above. PAST MEDICAL HISTORY: Congestive heart failure, COPD, diabetes mellitus, hypertension, chronic kidney disease, liver cirrhosis, dyslipidemia, and hepatitis C. PAST SURGICAL HISTORY: Includes embolization and cholecystectomy. SOCIAL HISTORY: He is an active smoker, 1 pack per day. ALLERGIES: No known allergies. MEDICATIONS: Per admission list. PHYSICAL EXAMINATION: VITAL SIGNS: Today, temperature is 36.7, pulse is 81, respirations 16, blood pressure is 134/92, SpO2 was 91% on 5 liters. GENERAL: The patient was lying in bed. He looked cachectic and tired. LUNGS: Decreased breathing sounds bilaterally. HEART: Irregular irregularity. S1, S2 within normal limits. ABDOMEN: Significant ascites. EXTREMITIES: +2 [place] [address] CONSULTATION Name: CHUYITA LUA Room: [address]#: [id number] Admission: 06/21/19 Attend Phys: Audrey Christian Discharge: 06/24/19 Date of : 62 Report #: [id number] LABORATORY DATA: Today, WBC 17.2, hemoglobin 9.2, and platelets 124. PT 11.7, PTT 29.3. Chemistry: Sodium is 132, potassium is 4.5, and creatinine 1.6. Lactic acid 3.3, bilirubin 0.3, AST 43, ALT is 20 and alkaline phosphatase is 157. IMAGING: Renal ultrasound showed mild thickening of the right renal cortex with large amount of drips within the bladder and nonvascular mass. CT angiogram showed interval small bilateral pleural effusion, right lower lobe and right middle lobe consolidation with infiltrates, stable to the aorta retroperitoneal mass and abdominal ascites. Venous Doppler showed no DVT. ASSESSMENT AND PLAN: A 58-year-old male who has been treated by Dr. Suzanne Ta for advanced hepatocellular carcinoma. The patient received embolization, not able to tolerate oral sorafenib. He was supposed to start Cyramza (ramucirumab) on 06/18, but the patient did not receive that dose since he was not able to provide a urine sample. The patient had bilateral pneumonia, urinary retention. In general, the patient has complicated medical comorbidities with advanced cancer. At this point, I had a discussion with the patient about continuation of treatment. He reported that he would like to continue treatment with Dr. Ta. I explained to the patient that at this point, if he does not recover and return to his baseline, we need to discuss the goals of care in terms of palliative care and possible hospice. In the meantime, we will continue current supportive care. We will monitor his clinical progress in the next 48 hours. I will check alpha fetoprotein. <ELECTRONICALLY SIGNED> By: Natasha Espinal MD 06/25/19 0844 1853 2055Natasha Espinal MD /nt
--- NOTE | 2019-07-04 09:25 | CON ---
[address] [address] CONSULTATION Name: CHUYITA LUA Room: [address] IN M.R.#: [id number] Admission: 06/21/19 Attend Phys: Audrey Christian Discharge: 06/24/19 Date of : 62 Report #: [id number] THIS REPORT FOR: //name// CC: MARIA DE JESUS physician/PCP Vikash Parikh [facility] DATE OF SERVICE: 06/23/2019 REQUESTING PHYSICIAN: Attila Bear MD. REASON FOR CONSULTATION: Acute kidney injury. HISTORY OF PRESENT ILLNESS: The patient is a 58-year-old gentleman, with medical history significant for stage 4 hepatocellular carcinoma, history of COPD, peptic ulcer disease, atrial fibrillation, presented to the hospital with complaints of low back pain after a fall at his friend's house. The patient apparently has very advanced disease and not a very good candidate for any kind of curative chemo and even a maintenance chemo is not going to be an option for him due to his poor condition. Past medical history is as I mentioned earlier. He does have chronic kidney disease, creatinine is around 1.3. Creatinine went up to 1.6 and I was consulted. He had some problems with hydronephrosis. Dr. Muro was consulted yesterday. He had postvoid residual of 331 mL, catheter was placed and he has good urine output now. His creatinine did not go up since yesterday, stayed around the same. SOCIAL HISTORY: He is smoker, smokes about a pack of cigarettes a day. Denies alcohol abuse. FAMILY HISTORY: Noncontributory. PAST MEDICAL HISTORY: Significant for COPD, diabetes, hypertension, atrial fibrillation, liver cirrhosis, hepatitis C, and stage 4 hepatocellular carcinoma. REVIEW OF SYSTEMS: Positive for weakness, chronic lower extremities edema, poor appetite, low back pain. Rest of the systems reviewed and negative. MEDICATIONS: Reviewed. From my standpoint, he was on insulin, clonidine, furosemide, [place] [address] CONSULTATION Name: CHUYITA LUA Room: [address] IN M..#: [id number] Admission: 06/21/19 Attend Phys: Audrey Christian Discharge: 06/24/19 Date of : 62 Report #: [id number] PHYSICAL EXAMINATION: GENERAL: Awake, alert, oriented, chronically ill-looking gentleman. VITAL SIGNS: Blood pressure is 145/88, heart rate is 81, temperature 36.7. HEENT: Pupils are round. NECK: Supple. LUNGS: Decreased air movement. CARDIOVASCULAR: Irregular rate. ABDOMEN: Soft, fluid is present is in his peritoneal cavity. LOWER EXTREMITIES: With chronic 2-4+ edema. LABORATORY DATA: Serum sodium 135, potassium 4.9, chloride 104, carbon dioxide 21, BUN 41, creatinine 1.6. ASSESSMENT: 1. Acute kidney injury with urinary retention. Creatinine is stabilizing after Lemus catheter was placed. 2. Chronic kidney disease, stage 3. 3. Stage 4 hepatocellular carcinoma. 4. Chronic edematous state with albumin of 1.2. 5. History of liver cirrhosis. 6. History of hepatitis C. PLAN: Keep the patient euvolemic. The patient's prognosis is very poor. He is not a dialysis candidate. I will keep Lemus catheter in for now. Thank you very much. <ELECTRONICALLY SIGNED> By: Aaron Marks MD 07/04/19 0925 0936 1029Alexmonik Marks MD /nt
== END 2019-06-24 07:47 | DRG 871 ==
LOC: M.ERS 09:19 → M.TBA-ER 11:28 → M.ICU 11:28 → M.2W 17:18 → M.ICU 20:09
PROVIDERS: Internal Medicine; Personal Emergency Response Attendant; ADMIT Internal Medicine
PROC: 5A09357 Assistance with Respiratory Ventilation, Less than 24 Consecutive Hours, Continuous Positive Airway Pressure (ICD-10-PCS; principal; 2019-06-24)
DX: A41.9 Sepsis, unspecified organism (principal); E43 Unspecified severe protein-calorie malnutrition; J96.01 Acute respiratory failure with hypoxia; J69.0 Pneumonitis due to inhalation of food and vomit; C22.0 Liver cell carcinoma; I13.0 Hypertensive heart and chronic kidney disease with heart failure and stage 1 through stage 4 chronic kidney disease, or unspecified chronic kidney disease; N17.9 Acute kidney failure, unspecified; J98.11 Atelectasis; K76.6 Portal hypertension; Z90.49 Acquired absence of other specified parts of digestive tract; K21.9 Gastro-esophageal reflux disease without esophagitis; B19.20 Unspecified viral hepatitis C without hepatic coma; J44.9 Chronic obstructive pulmonary disease, unspecified; Z66 Do not resuscitate; Z51.5 Encounter for palliative care; I50.9 Heart failure, unspecified; N18.3 Chronic kidney disease, stage 3 (moderate); D63.8 Anemia in other chronic diseases classified elsewhere; F17.210 Nicotine dependence, cigarettes, uncomplicated; I48.91 Unspecified atrial fibrillation; K74.60 Unspecified cirrhosis of liver; E11.40 Type 2 diabetes mellitus with diabetic neuropathy, unspecified; E78.5 Hyperlipidemia, unspecified; E11.22 Type 2 diabetes mellitus with diabetic chronic kidney disease; R33.9 Retention of urine, unspecified; Z87.11 Personal history of peptic ulcer disease; Z68.36 Body mass index [BMI] 36.0-36.9, adult; Z79.84 Long term (current) use of oral hypoglycemic drugs; Z79.899 Other long term (current) drug therapy